=== PATIENT | male | born 1945 | race Caucasian/White ===

== ENCOUNTER → 2016-11-03 | Outpatient (CLI) | payer OTHER, MEDICARE ==
[~2016-11-03] MED LIST: ALPR1TAB3 PO; CLN200 PO; LSN20 PO; LSN40 PO; MULT-506 PO; TRIA75TA53 PO
--- NOTE | 2016-11-03 12:01 | DIAGNOSTIC IMAGING REPORT ---
PET/CT HISTORY: COLORECTAL CANCER TECHNIQUE: PET/CT was performed from the base of the skull through the pelvis following the intravenous administration of 15.4 mCi of F18-FDG. Non-contrast CT imaging was performed over the same range without breath-hold for attenuation correction of PET images and anatomic correlation, but not for primary interpretation as it is not of standard diagnostic quality. CT DOSE: COMPARISON: 05/05/2016 FINDINGS: HEAD AND NECK: There is no FDG-avid disease or significant lymphadenopathy in the imaged portions of the head and the neck. CHEST: There is no FDG-avid disease in the chest. There is no axillary, mediastinal, or hilar lymphadenopathy. There is no pleural or pericardial effusion. There is no air-space disease or suspicious lung nodule. ABDOMEN/PELVIS: Below the diaphragm, tracer is distributed physiologically in the gastrointestinal and genitourinary tracts. There is no significant lymphadenopathy and no FDG-avid disease. MUSCULOSKELETAL: There is no FDG-avid or destructive bone lesion. IMPRESSION: There is no definite evidence of recurrent FDG-avid disease. Stable postoperative changes. Minor chronic changes as noted. No significant pulmonary nodularity Electronically signed by: Tian Becerra M.D. 11/03/2016 12:00 PM Dictated Date/Time: 11/03/2016 11:52 AM
== END | disposition home or self-care (01) ==
LOC: C.PET 08:24
PROVIDERS: ATTEND Internal Medicine Hematology
DX: C20 Malignant neoplasm of rectum (principal); C78.01 Secondary malignant neoplasm of right lung; C78.02 Secondary malignant neoplasm of left lung

== ENCOUNTER → 2016-12-24 | Outpatient (CLI) | payer OTHER, MEDICARE ==
--- NOTE | 2016-12-24 18:58 | DIAGNOSTIC IMAGING REPORT ---
LUMBAR SPINE MRI HISTORY: Pain. Neuropathy. INTERVERTEBRAL DISC DISORDERS W/ RADICULOPATHY TECHNIQUE: Multiplanar multisequence MRI of the lumbar spine was performed without the use of contrast. COMPARISON: None. FINDINGS: For the purpose of the report the L5-S1 disc space will be located on axial image 23 of 25. Considerable degenerative disc change throughout. This is most prominent at L4-L5. Mild heterogeneity of bone marrow signal components of which are age-related and degenerative. L1-L2: Mild broad-based disc bulge. Minimal impact with anterior thecal sac. L2-L3: Broad-based disc herniation with moderate impact upon the anterior thecal sac. Mild narrowing of the neuroforamina bilaterally. L3-L4: Mild broad-based disc herniation. Moderate impact anterior thecal sac. Mild narrowing of the neuroforamina bilaterally. L4-L5: Slight broad-based disc bulge. Minimal impact with anterior thecal sac. Minimal narrowing left neural foramina. L5-S1: Mild right posterior disc bulge. Mild narrowing right neuroforamina. No significant impact with thecal sac. IMPRESSION: 1. Considerable degenerative intervertebral disc changes throughout. 2. Broad-based disc herniations most prominent at L2-L3 and less significant at L3-L4 L4-L5, and L1-L2. 3. Minimal right posterior disc bulge L5-S1. Electronically signed by: Tian Becerra M.D. 12/24/2016 6:56 PM Dictated Date/Time: 12/24/2016 6:52 PM
== END | disposition home or self-care (01) ==
LOC: C.MRI 17:45
PROVIDERS: ATTEND Physician Assistant Medical
DX: M47.896 Other spondylosis, lumbar region (principal); M51.26 Other intervertebral disc displacement, lumbar region

== ENCOUNTER → 2017-07-06 | Outpatient (CLI) | payer OTHER, MEDICARE ==
[~2017-07-06] MED LIST changes: +LISI-726 PO; +LISI40TA3 PO; -LSN20 PO; -LSN40 PO; +OPTIRAY 320 IV PRN; +TAMS0.4C38 PO
--- NOTE | 2017-07-06 10:49 | DIAGNOSTIC IMAGING REPORT ---
ABD/PELVIS IV AND ORAL CONT CT DOSE: HISTORY: Rectal carcinoma RECTAL CANCER TECHNIQUE: Multiaxial CT images of the abdomen and pelvis were performed following the use of intravenous and oral contrast. A dose lowering technique was utilized adhering to the principles of ALARA. COMPARISON STUDY: 02/10/2015 FINDINGS: Unchanged exam compared to the prior study. Micronodular area in the lung bases has remained generally stable. Liver enhances uniformly. Kidneys are negative for hydronephrosis. Spleen pancreas are unremarkable. Gallbladder is negative for distention. No significant retroperitoneal or pericardial adenopathy. Appearance of the bowel pattern of the abdomen and pelvis is stable. Left anterior ostomy site is unchanged in appearance. No significant mesenteric oli change. No evidence for bowel obstructive change. Bladder is midline. Osseous structures appear to be intact. Several small benign-appearing intramuscular lipomas are stable and unchanged. IMPRESSION: Stable exam with no change from the prior study. The above report was generated using voice recognition software. It may contain grammatical, syntax or spelling errors. Electronically signed by: Tian Becerra M.D. 07/06/2017 10:47 AM Dictated Date/Time: 07/06/2017 10:28 AM
--- NOTE | 2017-07-06 10:59 | DIAGNOSTIC IMAGING REPORT ---
CT OF THE CHEST WITH IV CONTRAST CLINICAL HISTORY: RECTAL CANCER COMPARISON STUDY: February 10, 2015 , PET/CT scan dated 11/03/2016 TECHNIQUE: Following the IV administration of 93 mL of Optiray-320, CT of the thorax was performed from the thoracic inlet to the lung bases. Images are reviewed in the axial, sagittal, and coronal planes. IV contrast was administered without complication. A dose lowering technique was utilized adhering to the principles of ALARA. CT DOSE: 1108.92 mGy.cm FINDINGS: Thyroid: Imaged portions of the thyroid gland are normal in appearance. Thoracic aorta: The thoracic aorta is normal in course and caliber, noting standard 3-vessel arch anatomy. No aneurysm or dissection is seen. Pulmonary vasculature: The pulmonary trunk is normal in caliber. There are no central filling defects identified to suggest pulmonary embolus. Note that this examination was not protocoled for the evaluation of pulmonary emboli. HEART: The heart is normal in size and configuration, without pericardial effusion. Lungs and pleural spaces: There is trace pleural fluid. There is mild dependent atelectasis. There is minor lower lobe bronchial wall thickening. There is a 7 mm solid right upper lobe pulmonary nodule as visualized in image #153/321 there is a 3 mm right upper lobe point nodule as visualized in image #115/321 there is a 3 mm left lower lobe pulmonary nodule abutting the fissure as visualized in image #127/321. There is a 1 cm left upper lobe pulmonary nodule as visualized in image #149/321. It is adjacent 3 mm satellite nodule. There is also a 4 mm left upper lobe pulmonary nodule on image #139/321. There is a 6 mm right upper lobe pulmonary nodule as visualized in image #177/321. Mediastinum: There is no mediastinal lymphadenopathy. Brigid: There is no evidence of pathologic hilar adenopathy Axilla: There is no evidence of pathologic axillary lymphadenopathy. Upper abdomen: Partially visualized upper abdominal viscera is within normal limits. Skeletal structures: There are no lytic or blastic osseous lesions. IMPRESSION: 1. Multiple bilateral pulmonary nodules. These appear larger than on the most recent PET/CT scan dated 11/03/2016. Several these nodules have also increased in size when compared the prior chest CT scan dated 02/10/2015. The previously reported dominant 13 mm right upper lobe pulmonary nodule, has decreased in size. The findings are nevertheless concerning for progressive pulmonary metastasis. Electronically signed by: Ruy Britton M.D. 07/06/2017 10:58 AM Dictated Date/Time: 07/06/2017 10:32 AM
== END | disposition home or self-care (01) ==
LOC: C.CTS 09:28
PROVIDERS: ATTEND Internal Medicine Hematology
DX: C20 Malignant neoplasm of rectum (principal)

== ENCOUNTER → 2017-08-12 | Outpatient (CLI) | payer OTHER, MEDICARE ==
[~2017-08-12] MED LIST changes: -LISI-726 PO; -LISI40TA3 PO; +LSN20 PO; +LSN40 PO; -OPTIRAY 320 IV PRN; -TAMS0.4C38 PO
--- NOTE | 2017-08-12 17:22 | DIAGNOSTIC IMAGING REPORT ---
LUMBAR SPINE W/O CONTRAST HISTORY: Pain. Neuropathy. Z48.89,ENCOUNTER FOR SURGICAL AFTERCARE TECHNIQUE: Multiplanar multisequence MRI of the lumbar spine was performed without the use of contrast. COMPARISON: 12/24/2016 FINDINGS: For the purpose of the report the L5-S1 disc space will be located on axial image 27 of 30. Unremarkable appearance to the vertebral bodies. Interval posterior decompression laminectomy from L3 through L5. Considerable degenerative disc change L4-L5 and L5-S1 similar compared to the prior study. L1-L2: Mild broad-based disc bulge. Minimal impact with anterior thecal sac. No change from the prior study. L2-L3: Broad-based disc herniation unchanged from the prior study. Moderate impact upon the anterior thecal sac. Mild narrowing of the neuroforamina bilaterally unchanged. L3-L4: Mild broad-based disc bulge. Interval posterior laminectomy and fusion. Moderate osteophytic narrowing of the neuroforamina bilaterally. L4-L5: Interval history laminectomy and fusion. L5-S1: Right posterior bulging disc creating mild narrowing of the right neuroforamina. No significant impact with thecal sac. Findings of posterior decompression laminectomy and fusion. IMPRESSION: 1. Interval decompression laminectomy and fusion from L3 through L5. 2. Broad-based disc herniation L2-L3 unchanged from the prior exam. Mild narrowing of the neuroforamina bilaterally unchanged. 3. Broad-based bulging disc L3-L4 unchanged. Moderate osteophytic narrowing of the neuroforamina bilaterally unchanged. 4. Right posterior bulging disc L5-S1 with mild narrowing right neuroforamina. No change from the prior exam. The above report was generated using voice recognition software. It may contain grammatical, syntax or spelling errors. Electronically signed by: Tian Becerra M.D. 08/12/2017 5:21 PM Dictated Date/Time: 08/12/2017 5:13 PM
== END | disposition home or self-care (01) ==
LOC: C.MRI 16:13
PROVIDERS: ATTEND Physician Assistant Medical
DX: M51.16 Intervertebral disc disorders with radiculopathy, lumbar region (principal); M51.27 Other intervertebral disc displacement, lumbosacral region; M48.07 Spinal stenosis, lumbosacral region; Z98.1 Arthrodesis status

== ENCOUNTER 2017-09-05 15:24 | Emergency (ER) | payer OTHER, MEDICARE ==
[~2017-09-05] VITALS: Ht 182.9 cm; Wt 97.2 kg
[2017-09-05 15:27] VITALS: TEMP 36.7; Ht 182.9 cm; Wt 97.2 kg
[2017-09-05] MEDS ORDERED: TAMS0.4C38 PO (16:19)
[2017-09-05 18:09] VITALS: BP 167/94; PULSE 54; O2SAT 97
--- NOTE | 2017-09-05 19:12 | DIAGNOSTIC IMAGING REPORT ---
LUMBAR SPINE W/O CONTRAST HISTORY: Pain low back surg 6 days ago. Paresthesia b/l LE. TECHNIQUE: Multiplanar multisequence MRI of the lumbar spine was performed without the use of contrast. COMPARISON: 08/12/2017 FINDINGS: For the purpose of the report the L5-S1 disc space will be located on axial image 27 of 30. Interval posterior laminectomy and fusion L2-L3. Expected postoperative soft tissue change. No evidence for abscess or collection based on sagittal images. L1-L2: Minimal disc bulge unchanged from the prior study. L2-L3: Interval posterior laminectomy and fusion. Unchanging right central bulging disc and a mild disc herniation. Expected postoperative soft tissue change. L3-L4: No significant central canal or neural foraminal narrowing. Mild broad-based disc bulge unchanged from the prior study. L4-L5: No significant central canal or neural foraminal narrowing. Minimal disc bulge unchanged L5-S1: No significant central canal or neural foraminal narrowing. Minimal disc bulge unchanged IMPRESSION: 1. Interval decompression laminectomy and fusion at L2-L3. 2. Expected soft tissue changes posterior to the thecal sac. 3. No significant compromise of the spinal canal or thecal sac. 4. Unchanging findings from L3 through S1 consistent with mild disc bulges and postoperative changes. The above report was generated using voice recognition software. It may contain grammatical, syntax or spelling errors. Electronically signed by: Tian Becerra M.D. 09/05/2017 7:11 PM Dictated Date/Time: 09/05/2017 7:07 PM
--- NOTE | 2017-09-05 19:29 | EMERGENCY ROOM VISIT NOTE ---
History Report prepared by Aniya: Neela Manzanares Under the Supervision of: Jesus PenaO. First contact with patient: 15:41 Chief Complaint: BACK PAIN Stated Complaint: PAIN IN BACK, CROUCH, LEGS History of Present Illness The patient is a 71 year old male who presents to the Emergency Room with complaints of persistent groin pain for two days. He notes the pain has worsened this morning. He currently rates his pain a 7/10 in severity. He reports pain radiating from his groin to both his testicles and to the back of his legs and around his knees. He reports feeling numbness from his groin down to his feet. He recently had open back surgery six days ago in [place]. He states that he was able to walk around his house and was doing so just fine until two days ago, when the pain began. He notified his orthopedic surgeon who recommended he come to the ED for concern of a blood clot s/p surgery. He initially had the back surgery due to sciatica-like symptoms. He notes that he has sensation in his groin area. He denies any urinary symptoms or incontinence. Source of History: patient Onset: two days Position: other (groin) Symptom Intensity: 7/10 Timing: other (persistent) Associated Symptoms: + numbness, No urinary symptoms Note: He notes pain in bilateral testicles, radiating to both legs and feet. He denies any incontinence. Review of Systems See HPI for pertinent positives & negatives. A total of 10 systems reviewed and were otherwise negative. Past Medical & Surgical Medical Problems: (1) Abdominal pain (2) Abdominal pain (3) Abdominal pain (4) Anemia (5) Benign hypertension (6) Carcinoma of colon (7) Clostridium difficile colitis (8) Diarrhea (9) Diarrhea (10) Hypokalemia (11) Hypomagnesemia Surgical Problems: (1) Previous back surgery Family History Cancer Hypertension Social History Smoking Status: Former Smoker Alcohol Use: occasionally Marital Status: Housing Status: lives with significant other Occupation Status: retired Current/Historical Medications Scheduled Lisinopril (Lisinopril), 40 MG PO DIRECTED Multivitamin (Multivitamin), 1 TAB PO DAILY Tamsulosin Hcl (Flomax), 0.8 MG PO DAILY Triamterene/Hctz (Maxzide 75MG/50MG), 1 TAB PO DAILY Scheduled PRN Alprazolam (Xanax), 1 MG PO BID PRN for Anxiety Sulindac (Sulindac), 2 TAB PO DAILY PRN for PRN Allergies Coded Allergies: Antihistamines, Diphenhydramine-typ (Verified Allergy, Mild, RASH ALL ANTIHISTAMINES TYPE UNKNOWN, 09/05/17) Sulfa Drugs (Verified Adverse Reaction, Mild, GI SYMPTOMS, 09/05/17) Aspirin (Unverified Adverse Reaction, Unknown, PT VERY VAGUE WITH SYMPTOMS , 09/05/17) Physical Exam Vital Signs Date Time Temp Pulse Resp B/P (MAP) Pulse Ox O2 Delivery O2 Flow Rate FiO2 09/05/17 18:09 54 18 167/94 97 Room Air 09/05/17 16:14 56 16 152/79 96 Room Air 09/05/17 15:27 36.7 65 16 200/77 97 Room Air Physical Exam CONSTITUTIONAL/VITAL SIGNS: Reviewed / noted above. GENERAL: Non-toxic in appearance. INTEGUMENTARY: Warm, dry, and [place]. HEAD: Normocephalic. EYES: without scleral icterus or trauma. ENT/OROPHARYNX: clear and moist. LYMPHADENOPATHY/NECK: Is supple without lymphadenopathy or meningismus. RESPIRATORY: Lungs clear and equal. CARDIOVASCULAR: Regular rate and rhythm. GI/ABDOMEN: Soft and nontender. No organomegaly or pulsatile mass. No rebound or guarding. Normal bowel sounds. EXTREMITIES: Warm and well perfused. BACK: No CVA tenderness. Surgical wound is well healed, no obvious infection. NEUROLOGICAL: Intact without focal deficits. Normal LE reflexes. Normal gross sensation. Normal motor function. PSYCHIATRIC: normal affect. MUSCULOSKELETAL: Normally developed with good muscle tone. Medical Decision & Procedures ER Provider Diagnostic Interpretation: Radiology results as stated below per my review and radiologist interpretation: LUMBAR SPINE W/O CONTRAST HISTORY: Pain low back surg 6 days ago. Paresthesia b/l LE. TECHNIQUE: Multiplanar multisequence MRI of the lumbar spine was performed without the use of contrast. COMPARISON: 08/12/2017 FINDINGS: For the purpose of the report the L5-S1 disc space will be located on axial image . Interval posterior laminectomy and fusion L2-L3. Expected postoperative soft tissue change. No evidence for abscess or collection based on sagittal images. L1-L2: Minimal disc bulge unchanged from the prior study. L2-L3: Interval posterior laminectomy and fusion. Unchanging right central bulging disc and a mild disc herniation. Expected postoperative soft tissue change. L3-L4: No significant central canal or neural foraminal narrowing. Mild broad-based disc bulge unchanged from the prior study. L4-L5: No significant central canal or neural foraminal narrowing. Minimal disc bulge unchanged L5-S1: No significant central canal or neural foraminal narrowing. Minimal disc bulge unchanged IMPRESSION: 1. Interval decompression laminectomy and fusion at L2-L3. 2. Expected soft tissue changes posterior to the thecal sac. 3. No significant compromise of the spinal canal or thecal sac. 4. Unchanging findings from L3 through S1 consistent with mild disc bulges and postoperative changes. The above report was generated using voice recognition software. It may contain grammatical, syntax or spelling errors. Electronically signed by: Tian Becerar M.D. 09/05/2017 7:11 PM Dictated Date/Time: 09/05/2017 7:07 PM Laboratory Results Test 09/05/17 16:06 Urine Color YELLOW Urine Appearance CLEAR (CLEAR) Urine pH 8.5 (4.5-7.5) Urine Specific [place] 1.008 (1.000-1.030) Urine Protein NEG (NEG) Urine Glucose (UA) NEG (NEG) Urine Ketones NEG (NEG) Urine Occult Blood NEG (NEG) Urine Nitrite NEG (NEG) Urine Bilirubin NEG (NEG) Urine Urobilinogen NEG (NEG) Urine Leukocyte Esterase NEG (NEG) Urine WBC (Auto) 0 /hpf (0-5) Urine RBC (Auto) 0-4 /hpf (0-4) Urine Hyaline Casts (Auto) 0 /lpf (0-5) Urine Epithelial Cells (Auto) 0-5 /lpf (0-5) Urine Bacteria (Auto) NEG (NEG) Laboratory results as stated above per my review. ED Course 1555: Previous medical records were reviewed. The patient was evaluated in room C4. A complete history and physical examination was performed. 1916: I reassessed the patient at this time. He is resting comfortably. I discussed the results and treatment plan with the patient. I answered all pertaining questions that he had. He expressed understanding and verbalized agreement. The patient will be discharged home. Medical Decision Differentials considered include cauda equina syndrome, conus medullaris, spinal cord compression syndrome, peripheral nerve compression, fractures or subluxations, intra-abdominal pathology such as abdominal aortic aneurysm or kidney stones, muscle strain, transverse myelitis, and spinal cord injury. This is a 71-year-old male who presents to the ED with a chief complaint of bilateral lower extremity discomfort. The patient had back surgery 6 days ago in [place]. He states that he noticed some increased pain on Tuesday. He reports some tingling from his hips down. The patient states that he contacted his surgeon and was told to come and get an MRI. The patient's exam was relatively unremarkable. He has no focal neurologic deficits, abnormal reflexes or sensory issues at the lower extremities. An MRI of the spine revealed decompression laminectomy of L2 and L3. Otherwise no significant changes other than postsurgical soft tissue swelling. Urine did not show infection. The patient was told the results. He is felt to be stable for discharge. He did not require pain medication. Medication Reconcilliation Current Medication List: was personally reviewed by me Blood Pressure Screening Patient's blood pressure: Elevated blood pressure Blood pressure disposition: Elevated BP felt to be situational Impression Primary Impression: Sciatica Scribe Attestation The scribe's documentation has been prepared under my direction and personally reviewed by me in its entirety. I confirm that the note above accurately reflects all work, treatment, procedures, and medical decision making performed by me. Departure Information Dispostion Home / Self-Care Referrals Uriel Hewitt M.D. (PCP) Patient Instructions My [facility] Additional Instructions Follow-up with your doctor for further care and evaluation in 3-4 days. Return to the emergency department for worsening or new symptoms or any concerns. You have been examined and treated today on an emergency basis only. This is not a substitute for, or an effort to provide, complete comprehensive medical care. It is impossible to recognize and treat all injuries or illnesses in a single emergency department visit. It is therefore important that you follow up closely with your doctor. Call as soon as possible for an appointment.
== END 2017-09-05 19:37 | disposition home or self-care (01) ==
LOC: C.EDB 15:25 → C.EDC 19:37
DX: M51.16 Intervertebral disc disorders with radiculopathy, lumbar region (principal); Z85.038 Personal history of other malignant neoplasm of large intestine; Z98.890 Other specified postprocedural states; Z87.891 Personal history of nicotine dependence; Z79.899 Other long term (current) drug therapy; Z88.8 Allergy status to other drugs, medicaments and biological substances

== ENCOUNTER 2020-05-05 10:02 | Inpatient (IN) ==
[2020-05-05] MEDS ORDERED: ONDANSETRON INJ 2 MG/ML 2 ML VIAL IV STA (10:10)
[2020-05-05] MEDS ORDERED: SODIUM CHLORIDE 0.9% 1000ML 1,000 ML IV ONE (10:10)
--- NOTE | 2020-05-05 10:18 | Emergency Department Note ---
Impression & Plan Metastasis to brain, High blood pressure, Confusion, Bleeding in brain, Arm weakness ED Provider Note NAME: TADEO SANDOVAL JR AGE: 74 SEX: M : 1945 ARRIVES VIA: Ambulance INFORMANT: Patient ED PROVIDER(S): Todd Mckeon DO CHIEF COMPLAINT: weakness with N/V/D HPI: Patient is a 74-year-old male who presents to the ER for weakness and confusion. Everything has been going on for the past week. Patient deines any nausea, vomiting, and diarrhea but admits to this. notes that the confusion has been getting worse over a week. Patient denies any complaints with the exception of a mild headache. Patient denies any other exacerbating or remitting factors. No change in vision, chest pain, or shortness of breath. 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 He denies any focal weakness or numbness. ROS: See above HPI for pertinent positives & negatives. A total of 10 systems reviewed and were otherwise negative. PAST MEDICAL HISTORY:See Below PAST SURGICAL HISTORY:See Below FAMILY HISTORY:See Below SOCIAL HISTORY:See Below HOME MEDICATIONS:See Below ALLERGIES:See Below VITALS:See Below PHYSICAL EXAMINATION: GENERAL: Sitting up in bed, alert, conically ill-appearing, disheveled EYE EXAM: normal conjunctiva. Disconjugate gaze OROPHARYNX: no exudate, no erythema, lips, buccal mucosa, and tongue normal and mucous membranes are moist NECK: supple, no nuchal rigidity, no adenopathy, non-tender LUNGS: Clear to auscultation. Normal chest wall mechanics HEART: no murmurs, S1 normal and S2 normal ABDOMEN: abdomen soft, non-tender, ostomy in mid abdomen, normo-active bowel sounds, no masses, no rebound or guarding. BACK: Back is symmetrical on inspection and there is no deformity, no midline tenderness, no CVA tenderness. SKIN: no rashes and no bruising UPPER EXTREMITIES: upper extremities are grossly normal. LOWER EXTREMITIES: No pitting edema. NEURO EXAM: Normal sensorium, cranial nerves II-XII intact, normal speech, mild weakness of the left upper and left lower extremity. MEDICAL DECISION MAKING: Patient is a 74-year-old male who presents the ER for confusion associated with nausea vomiting diarrhea x1 week. He also is complaining of some left upper extremity weakness. IV was established blood work was obtained. Labs show no significant leukocytosis or anemia. INR was unremarkable. BMP with normal creatinine. Glucose slightly elevated at 133. LFTs bilirubin and troponin were negative. UA with small amount of ketones. Patient was given IV fluids. CT of his head as well as angios the head and neck shows likely metastatic disease within the brain with small bleeds. His was updated as well as his brother at bedside. Discussed with Dr. Rodriguez from hematology oncology and he was comfortable keeping this gentleman here him believe that he does not need a neurosurgeon and steroids and radiation would be most appropriate. Patient was updated bedside and admitted for further work-up. Triage Nursing notes reviewed. Prior medical records reviewed Vital Signs: reviewed and remarkable for no significant abnormalities Differential diagnosis: Differential diagnoses includes but is not limited to toxic, metabolic, infectious, traumatic, cardiac, neurologic, hematologic, psychiatric and inflammatory etiologies. ER treatment provided: See below Diagnostics interpreted by me: ECG: Sinus rhythm rate of 66 Normal axis No PVCs Normal QTC Cardiac Monitoring: An order was placed for continuous cardiac monitoring. The monitor shows a rate of 74 with sinus rhythm. Laboratory studies: As stated above and show below. Imaging studies: See below Consultation(s): Discussed with Dr. Rodriguez as stated above in MDM Discussed with hospitalist for further evaluation ED COURSE: Procedures: none Critical Care: None Past Med/Surg History Medical History (Updated 05/05/20 @ 16:13 by Todd Mckeon DO) Arthritis Colon cancer [address] Enlarged prostate High blood pressure alcohol related Surgical History History of bowel resection Previous back surgery 08/2017 and 12/2016 Family History Father Cancer Throat Mother Hypertension Social History Smoking Status: Former smoker Tobacco Type: Cigarettes packs per day: 2; Years Smoked: 27; Hx Alcohol Use: Yes Alcohol type: beer Alcohol Intake Frequency Comment: unable to assess freq due to pt not reliable Hx Substance Use: No Preferred Language: Iranian Communication Ability: Impaired Visual Impairment: No Limitations Hearing Ability: Normal Climate Change Risk Assessor Required: No Beliefs That Will Affect Care: None marital status: Current Living Situation: Spouse current occupational status: retired current occupation: [employer] Feels Safe at Home: Yes Safety Concerns: Feels Safe At This Time Assistive Devices: Denture - Upper, Denture - Lower and Glasses Allergies Allergies Allergy/AdvReac Type Severity Reaction Status Date / Time diphenhydramine Allergy Mild RASH ALL Verified 10/17/18 13:24 ANTIHISTAMINES TYPE UNKNOWN Sulfa (Sulfonamide AdvReac Mild GI SYMPTOMS Verified 10/17/18 13:24 Antibiotics) aspirin AdvReac Unknown PT VERY Unverified 10/17/18 13:24 VAGUE WITH SYMPTOMS Home Meds Home Medications Medication Instructions Recorded Confirmed alprazolam 1 mg tablet 1 mg PO BID PRN 08/03/18 05/05/20 lisinopril 40 mg tablet 40 mg PO DAILY 08/03/18 05/05/20 multivitamin 1 cap PO DAILY 08/03/18 05/05/20 sulindac 200 mg tablet 200 mg PO BID 08/03/18 05/05/20 tamsulosin 0.4 mg capsule 0.4 mg PO DAILY 08/03/18 05/05/20 triamterene 75 1 tab PO DAILY 08/03/18 05/05/20 mg-hydrochlorothiazide 50 mg tablet oxycodone 10 mg tablet 10 mg PO TID PRN tab 10/17/18 05/05/20 capecitabine 500 mg PO BID 05/05/20 05/05/20 Results & Data (ED) Vital Signs Vital Signs - 24 hr 05/05/20 10:14 05/05/20 11:45 Temperature 37 C Temperature Source Oral Pulse Rate 63 Pulse Rate [Apical] 68 Respiratory Rate 18 18 Blood Pressure 193/88 H Blood Pressure [Left Arm] 178/86 H Blood Pressure Mean 123 Blood Pressure Mean [Left Arm] 116 Pulse Oximetry 95 96 Oxygen Delivery Method Room Air Room Air Sepsis Recent Fever Within 48 Hours No Sepsis New/Unexplained Change in Mental Status Yes Sepsis Action Taken by Nursing No Action Required Laboratory Data Result diagrams: 05/05/20 10:09 05/05/20 10:09 Lab Results 05/05/20 05/05/20 05/05/20 Range/Units 10:09 10:09 10:09 WBC 5.50 (4.8-10.8) K/uL RBC 3.85 L (4.7-6.1) M/uL Hgb 12.5 L (14.0-18.0) g/dL POC Hgb (14.0-18.0) g/dl Hct 37.7 L (42-52) % POC Hct (42-52) % MCV 97.9 (80-100) fL MCH 32.5 (25-34) pg MCHC 33.2 (32-36) g/dL RDW Std Deviation 51.6 H (36.4-46.3) fL RDW Coeff of Josef 14.7 H (11.5-14.5) % Plt Count 174 (130-400) K/uL MPV 10.2 (7.4-10.4) fL Immature Gran % (Auto) 0.2 % Neut % (Auto) 85.8 % Lymph % (Auto) 6.9 % Blanco % (Auto) 6.9 % Eos % (Auto) 0.2 % Baso % (Auto) 0.0 % Neut # (Auto) 4.72 (1.4-6.5) K/uL Lymph # (Auto) 0.38 L (1.2-3.4) K/uL [place] # (Auto) 0.38 (0.11-0.59) K/uL Eos # (Auto) 0.01 (0-0.5) K/uL Baso # (Auto) 0.00 (0-0.2) K/uL Immature Gran # (Auto) 0.01 (0.00-0.02) K/uL PT 11.3 (9.0-12.0) Seconds INR 1.1 (0.9-1.1) APTT 26.0 (21.0-31.0) Seconds PTT Ratio 0.9 POC Sodium (135-144) mmol/L Sodium 137 (136-145) mmol/L POC Potassium (3.3-5.0) mmol/L Potassium 3.9 (3.5-5.1) mmol/L POC Chloride (101-112) mmol/L Chloride 104 (98-107) mmol/L Carbon Dioxide 28 (21-32) mmol/L POC Total CO2 (24-31) mmol/L Anion Gap 6.0 (3-11) POC Anion Gap (16-25) mmol/L POC BUN (7-18) mg/dl BUN 16 (7-18) mg/dl Creatinine 1.14 (0.6-1.4) mg/dl POC Creatinine (0.6-1.3) mg/dl Est Cr Clr Drug Dosing 59.3 ml/min Est GFR ( Amer) 72.0 Est GFR (Non-Af Amer) 62.1 BUN/Creatinine Ratio 13.8 (10-20) Glucose 131 H (70-99) mg/dl POC Glucose (other) (70-99) mg/dl Calcium 9.3 (8.5-10.1) mg/dl POC Ioniz Calcium Meli (1.12-1.32) mmol/l Magnesium 1.8 (1.8-2.4) mg/dl Total Bilirubin 1.4 H (0.2-1) mg/dl AST 22 (15-37) U/L ALT 21 (12-78) U/L Alkaline Phosphatase 84 (45-117) U/L Troponin I < 0.015 (0-0.045) ng/ml Total Protein 6.6 (6.4-8.2) gm/dl Albumin 3.7 (3.4-5.0) gm/dl Globulin 2.9 (2.5-4.0) gm/dl Albumin/Globulin Ratio 1.3 (0.9-2) Specimen Hemolysis 05/05/20 Range/Units 10:15 WBC (4.8-10.8) K/uL RBC (4.7-6.1) M/uL Hgb (14.0-18.0) g/dL POC Hgb 12.6 L (14.0-18.0) g/dl Hct (42-52) % POC Hct 37 L (42-52) % MCV (80-100) fL MCH (25-34) pg MCHC (32-36) g/dL RDW Std Deviation (36.4-46.3) fL RDW Coeff of Josef (11.5-14.5) % Plt Count (130-400) K/uL MPV (7.4-10.4) fL Immature Gran % (Auto) % Neut % (Auto) % Lymph % (Auto) % [place]anco % (Auto) % Eos % (Auto) % Baso % (Auto) % Neut # (Auto) (1.4-6.5) K/uL Lymph # (Auto) (1.2-3.4) K/uL [place] # (Auto) (0.11-0.59) K/uL Eos # (Auto) (0-0.5) K/uL Baso # (Auto) (0-0.2) K/uL Immature Gran # (Auto) (0.00-0.02) K/uL PT (9.0-12.0) Seconds INR (0.9-1.1) APTT (21.0-31.0) Seconds PTT Ratio POC Sodium 137 (135-144) mmol/L Sodium (136-145) mmol/L POC Potassium 3.9 (3.3-5.0) mmol/L Potassium (3.5-5.1) mmol/L POC Chloride 100 L (101-112) mmol/L Chloride (98-107) mmol/L Carbon Dioxide (21-32) mmol/L POC Total CO2 28 (24-31) mmol/L Anion Gap (3-11) POC Anion Gap 14.0 L (16-25) mmol/L POC BUN 18 (7-18) mg/dl BUN (7-18) mg/dl Creatinine (0.6-1.4) mg/dl POC Creatinine 1.0 (0.6-1.3) mg/dl Est Cr Clr Drug Dosing ml/min Est GFR ( Amer) Est GFR (Non-Af Amer) BUN/Creatinine Ratio (10-20) Glucose (70-99) mg/dl POC Glucose (other) 133 H (70-99) mg/dl Calcium (8.5-10.1) mg/dl POC Ioniz Calcium Meli 1.21 (1.12-1.32) mmol/l Magnesium (1.8-2.4) mg/dl Total Bilirubin (0.2-1) mg/dl AST (15-37) U/L ALT (12-78) U/L Alkaline Phosphatase (45-117) U/L Troponin I (0-0.045) ng/ml Total Protein (6.4-8.2) gm/dl Albumin (3.4-5.0) gm/dl Globulin (2.5-4.0) gm/dl Albumin/Globulin Ratio (0.9-2) Specimen Hemolysis Administered Medications Discontinued Medications Haloperidol Lactate (Haloperidol Lactate 5 Mg/Ml 1 Ml Vial) 5 mg IM NOW STA Stop: 05/05/20 13:39 Last Admin: 05/05/20 13:49 Dose: 5 mg Documented by: [id number] Haloperidol Lactate (Haloperidol Lactate 5 Mg/Ml 1 Ml Vial) Confirm Administered Dose 5 mg .ROUTE .STK-MED ONE Stop: 05/05/20 13:44 Last Admin: 05/05/20 13:49 Dose: Not Given Documented by: [id number] Sodium Chloride (Nss 1000ml) 1,000 mls @ 999 mls/hr IV .Q1H1M ONE Stop: 05/05/20 11:10 Last Infusion: 05/05/20 11:58 Dose: 0 mls/hr Documented by: [id number] Admin: 05/05/20 10:55 Dose: 999 mls/hr Documented by: [id number] Ioversol (Optiray 320 125ml) 120 ml IV ONCE ONE Stop: 05/05/20 10:31 Last Admin: 05/05/20 10:31 Dose: 120 ml Documented by: [id number] Ondansetron HCl (Ondansetron Inj 2 Mg/Ml 2 Ml Vial) 4 mg IV NOW STA Stop: 05/05/20 10:11 Last Admin: 05/05/20 10:56 Dose: 4 mg Documented by: [id number] Discharge Plan Visit Data Chief Complaint: Confusion ED Provider: Todd Mckeon Discharge Problem: Metastasis to brain, High blood pressure, Confusion, Bleeding in brain, Arm weakness Patient Disposition: Admitted As Inpatient Discharge Instructions Interventions: ED Discharge Assessment Last Done: 05/05/20 13:48 Discharge Problem: High blood pressure Qualifiers: Hypertension type: unspecified Qualified Code(s): I10 - Essential (primary) hypertension Bleeding in brain Qualifiers: Intracerebral hemorrhage etiology: nontraumatic Cerebral hemorrhage location: unspecified cerebral location Laterality: unspecified laterality Qualified Code(s): I61.9 - Nontraumatic intracerebral hemorrhage, unspecified
[2020-05-05 10:19] LABS: Eosinophils # (auto) 0.01 K/uL (0-0.5); Eosinophils % (auto) 0.2 %; Hematocrit (blood only) 37.7 % (42-52); Hemoglobin 12.5 g/dL (14.0-18.0); Immature Granulocytes # (auto) 0.01 K/uL (0.00-0.02); Immature Granulocytes % (auto) 0.2 %; Lymphocytes # (auto) 0.38 K/uL (1.2-3.4); Lymphocytes % (auto) 6.9 %; Mean Corpuscular Hemoglobin 32.5 pg (25-34); Mean Corpuscular Hgb Conc 33.2 g/dL (32-36); Mean Corpuscular Volume 97.9 fL (80-100); Mean Platelet Volume 10.2 fL (7.4-10.4); Monocytes # (auto) 0.38 K/uL (0.11-0.59); Monocytes % (auto) 6.9 %; Neutrophils # (auto) 4.72 K/uL (1.4-6.5); Neutrophils % (auto) 85.8 %; Platelet Count 174 K/uL (130-400); RDW Coefficient of Variation 14.7 % (11.5-14.5); RDW Standard Deviation 51.6 fL (36.4-46.3); Red Blood Count 3.85 M/uL (4.7-6.1)
[2020-05-05] MEDS ORDERED: OPTIRAY 320 125ml IV ONE (10:30)
[2020-05-05 10:31] LABS: INR 1.1 (0.9-1.1); Partial Thromboplastin Ratio 0.9; Prothrombin Time 11.3 Seconds (9.0-12.0)
[2020-05-05 10:34] LABS: iSTAT Hemoglobin 12.6 g/dl (14.0-18.0); iSTAT Ionized Calcium 1.21 mmol/l (1.12-1.32); iSTAT Potassium 3.9 mmol/L (3.3-5.0)
--- NOTE | 2020-05-05 10:37 | XRay Report ---
XR chest 1V portable HISTORY: 74 years-old Male weak acute weakness COMPARISON: PET CT 11/14/2019 TECHNIQUE: Portable AP view of the chest FINDINGS: Cardiomediastinal and hilar silhouettes are within normal limits. Bilateral pulmonary metastasis are redemonstrated. No pneumothorax, pleural effusion or overt pulmonary edema. No airspace consolidation typical for pneumonia. Bones appear grossly intact without acute fracture. IMPRESSION: 1. No acute process. 2. Pulmonary metastasis redemonstrated. ACT 112: Negative or not required by law. The above report was generated using voice recognition software. It may contain grammatical, syntax o r spelling errors. Electronically signed by: Zhang Valdez M.D. 05/05/2020 10:36 AM
[2020-05-05 10:43] LABS: Alanine Aminotransferase 21 U/L (12-78); Albumin Globulin Ratio 1.3 (0.9-2); Albumin Level 3.7 gm/dl (3.4-5.0); Alkaline Phosphatase 84 U/L (45-117); Aspartate Aminotransferase 22 U/L (15-37); BUN Creatinine Ratio 13.8 (10-20); Bilirubin,Total 1.4 mg/dl (0.2-1); Blood Urea Nitrogen 16 mg/dl (7-18); Calcium 9.3 mg/dl (8.5-10.1); Carbon Dioxide 28 mmol/L (21-32); Chloride 104 mmol/L (98-107); Creatinine Clr Calc Pharmacy 59.3 ml/min; Est GFR (Non-African American) 62.1; Globulin 2.9 gm/dl (2.5-4.0); Glucose 131 mg/dl (70-99); Magnesium 1.8 mg/dl (1.8-2.4); Potassium 3.9 mmol/L (3.5-5.1); Sodium 137 mmol/L (136-145); Total Protein 6.6 gm/dl (6.4-8.2); Troponin I < 0.015 ng/ml (0-0.045)
--- NOTE | 2020-05-05 11:04 | CT Scan Report ---
CT SCAN OF THE ABDOMEN AND PELVIS WITH IV CONTRAST CLINICAL HISTORY: Generalized abdominal pain. Change in mental status. COMPARISON STUDY: Abdominal CT dated 07/06/2017. PET/CT dated 11/14/2019. TECHNIQUE: Following the IV administration of 120 cc of Optiray 320, CT scan of the abdomen and pelv is is performed from the lung bases to the proximal femora. Images are reviewed in the axial, sagitta l, and coronal planes. IV contrast was administered without complication. A dose lowering technique w as utilized adhering to the principles of ALARA. FINDINGS: Lung bases: The heart is enlarged noting a moderate pericardial effusion. The coronary arteries are d ensely calcified. There is trace right pleural effusion. No airspace consolidation is seen typical fo r pneumonia. Scattered calcified granulomas are observed. Pulmonary metastatic disease at both lung b ases appears modestly increased from the 11/14/2019 examination. A 3.9 cm left lower lobe mass is seen on image #13. A 1.4 cm right lower lobe nodule is seen on image #45. There is a small hiatal hernia. Liver: The contrast-enhanced liver is normal in size, contour, and attenuation. There is mild intrahe patic biliary ductal dilatation. The hepatic veins and portal veins are patent. Gallbladder: Surgically absent noting clips in the gallbladder fossa. Dilatation of the common bile d uct is similar to previous and likely related to previous cholecystectomy. Spleen: Normal in size and attenuation. Pancreas: Moderately atrophic and grossly unremarkable. Adrenal glands: Unremarkable. Kidneys: The contrast enhanced kidneys demonstrate cortical atrophy and are without hydronephrosis. T he kidneys enhance symmetrically. Abdominal vasculature: The abdominal aorta is normal in course and caliber noting moderate atheroscle rotic calcification. Bowel: There is postoperative change from a proctocolectomy with left lower quadrant colostomy. No hung wel obstruction is identified. There is mild to moderate diverticulosis of the remaining colon withou t CT evidence of acute diverticulitis. There are also scattered diverticula of the small bowel. There is interloop edema and minimal wall thickening involving loops of small bowel in the left mid abdome n (image #191). Moderate constipation is observed. The appendix is surgically absent. Peritoneum: There is no intraperitoneal free air or abdominal ascites. Lymphadenopathy: None. Pelvic viscera: The prostate gland is enlarged and heterogeneous. The bladder wall is thickened and t rabeculated indicating chronic outlet obstruction. Skeletal structures: The skeletal structures are osteopenic. There is moderate lumbosacral spondylosi s. Postlaminectomy changes noted in the lower lumbar spine. No lytic or blastic lesions are seen. IMPRESSION: 1. There is interloop edema involving loops of small bowel in the left midabdomen with minimal small bowel wall thickening. Correlate clinically for evidence of a nonspecific enteritis. 2. Cardiomegaly and moderate pericardial effusion. This has increased in size from 11/14/2019. 3. Pulmonary metastatic disease appears modestly progressive as compared to 11/14/2019. 4. Trace right pleural effusion. 5. Moderate constipation. 6. Postoperative change from proctocolectomy with left lower quadrant colostomy. No bowel obstruction is seen. 7. Additional findings as above. ACT 112: Negative or not required by law. Electronically signed by: Lino Ricci M.D. 05/05/2020 11:03 AM
--- NOTE | 2020-05-05 11:08 | CT Scan Report ---
NONCONTRAST HEAD CT, HEAD CTA, & NECK CTA HISTORY: Confusion. Stroke evaluation TECHNIQUE: Multiaxial CT images of the head were performed both before and after the the intravenous administration of contrast to evaluate the major cerebral vessels. Multiaxial CT images of the neck w ere also performed following the intravenous administration of contrast to evaluate the major cervica l vessels. Maximum intensity projection images were also obtained. A dose lowering technique was util ized adhering to the principles of ALARA. COMPARISON: None. FINDINGS: The paranasal sinuses and mastoid air cells are clear. The calvarium and skull base are intact. There are multiple slightly hyperdense lesions seen scattered throughout the supratentorial and infratento rial brain with surrounding vasogenic edema. Dominant lesion within the left cerebellar hemisphere me asures 11 mm. Dominant lesion within the left frontal lobe on image 17 measures 2.4 cm. There is mild mass effect along the left lateral ventricle due to the vasogenic edema. The basilar cisterns appear intact. No significant midline shift at this time. These findings are consistent with hemorrhagic me tastatic foci. No acute infarct identified. Visualized intracranial internal carotid arteries, distal vertebral arteries, and basilar artery are widely patent. There is no significant stenosis, occlusio n, or aneurysm seen within the bilateral ACAs, MCAs, or industrial illuminating engineer. There is a persistent right posterior f etal circulation. This is considered to be a normal variant. The aortic arch and proximal great vessels are widely patent. There is no significant stenosis, occ lusion, or dissection identified within the bilateral common carotid, internal carotid, or vertebral arteries. The patient's known pulmonary metastatic nodules are better appreciated on the prior studie s. IMPRESSION: 1. No significant stenosis, occlusion, or aneurysm within the [place]. 2. No significant stenosis, occlusion, or dissection identified within the carotid or vertebral arter ies. 3. Multiple intracranial lesions consistent with metastatic disease. These are hyperdense favoring he morrhagic metastatic foci. 4. The patient's known pulmonary metastatic disease is better appreciated on the prior studies. ACT 112: Negative or not required by law. Electronically signed by: Alexander Martinez M.D. 05/05/2020 11:06 AM
--- NOTE | 2020-05-05 11:08 | CT Scan Report ---
NONCONTRAST HEAD CT, HEAD CTA, & NECK CTA HISTORY: Confusion. Stroke evaluation TECHNIQUE: Multiaxial CT images of the head were performed both before and after the the intravenous administration of contrast to evaluate the major cerebral vessels. Multiaxial CT images of the neck w ere also performed following the intravenous administration of contrast to evaluate the major cervica l vessels. Maximum intensity projection images were also obtained. A dose lowering technique was util ized adhering to the principles of ALARA. COMPARISON: None. FINDINGS: The paranasal sinuses and mastoid air cells are clear. The calvarium and skull base are intact. There are multiple slightly hyperdense lesions seen scattered throughout the supratentorial and infratento rial brain with surrounding vasogenic edema. Dominant lesion within the left cerebellar hemisphere me asures 11 mm. Dominant lesion within the left frontal lobe on image 17 measures 2.4 cm. There is mild mass effect along the left lateral ventricle due to the vasogenic edema. The basilar cisterns appear intact. No significant midline shift at this time. These findings are consistent with hemorrhagic me tastatic foci. No acute infarct identified. Visualized intracranial internal carotid arteries, distal vertebral arteries, and basilar artery are widely patent. There is no significant stenosis, occlusio n, or aneurysm seen within the bilateral ACAs, MCAs, or smoke and flame specialist. There is a persistent right posterior f etal circulation. This is considered to be a normal variant. The aortic arch and proximal great vessels are widely patent. There is no significant stenosis, occ lusion, or dissection identified within the bilateral common carotid, internal carotid, or vertebral arteries. The patient's known pulmonary metastatic nodules are better appreciated on the prior studie s. IMPRESSION: 1. No significant stenosis, occlusion, or aneurysm within the [place]. 2. No significant stenosis, occlusion, or dissection identified within the carotid or vertebral arter ies. 3. Multiple intracranial lesions consistent with metastatic disease. These are hyperdense favoring he morrhagic metastatic foci. 4. The patient's known pulmonary metastatic disease is better appreciated on the prior studies. ACT 112: Negative or not required by law. Electronically signed by: Alexander Martinez M.D. 05/05/2020 11:06 AM
--- NOTE | 2020-05-05 11:19 | Electrocardiogram Report ---
Test Reason : Blood Pressure : / mmHG Vent. Rate : 061 BPM Atrial Rate : 061 BPM P-R Int : 196 ms QRS Dur : 108 ms QT Int : 440 ms P-R-T Axes : 092 000 049 degrees QTc Int : 442 ms Normal sinus rhythm Normal ECG When compared with ECG of 12-MAR-2013 18:31, Nonspecific T wave abnormality now evident in Anterior leads T wave amplitude has increased in Lateral leads Confirmed by Nakul Correa ([id number]) on 05/05/2020 11:19:43 AM Referred By: REFERRED SELF Confirmed By:Dayo Correa
--- NOTE | 2020-05-05 13:16 | History & Physical Report ---
Date of Service May 05, 2020 Assessment & Plan (1) Rectal cancer metastasized to lung: (2) Metastasis to brain: (3) Confusion: This is a 74-year-old male who has significant past medical history of rectal cancer with known mets to both lungs, HTN, BPH, osteoarthritis who presents to E [facility] secondary to confusion and weakness x1 week. Head CT reveals multiple lesions concerning for hemorrhagic metastatic disease. I had a long discussion with patient and brother at bedside. I also spoke with on the phone who is currently undergoing a cholecystectomy. Patient initially diagnosed with rectal CA in 2012 with mets to the lung. Now with increased confusion x2 weeks and newly discovered metastatic disease to the brain. Patient and family wish to not pursue any further systemic chemotherapy or radiation therapy. I discussed case with Dr. Rodriguez who agrees palliative care consult as well as initiating oral Decadron 4 mg every 4 hours. Admit to medical Consult palliative care with hopeful transition to hospice care, goal is to return patient to home One-to-one as needed as patient very restless and impulsive Decadron 4 mg every 4 hours IVF 100 cc/h x 2 L Consult case management Haldol 5mg x 1 given in ER due to restlessness Pt was on xeloda a home -unsure if currently taking but will hold for now given family wish to no longer pursue chemo he does follow with [facility] in [place] as well (4) Pericardial effusion: discovered on CT, no s/sx of tamponade obtain echocardiogram (5) Abnormal CT of the abdomen: CT abd/pelvis: interloop edema involving loops of small bowel in the left midabdomen with minimal small bowel wall thickening. Correlate clinically for evidence of a nonspecific enteritis. reports 1 week ago of n/v/d. This has since resolved. Afebrile, no wbc and abd exam benign. Order stool studies and observe. No indication for antibiotics at this this. (6) HTN (hypertension): continue lisinopril, triamterene/hctz, parameters in place monitor bp (7) DVT prophylaxis: SCD/TEDS Disposition: admit to med/surg, plan to consult palliative with possibility of hospice involvement Follow up: PCP Dr. Hewitt upon discharge Pt was seen and examined in collaboration with Dr. Palomino, please see addendum History of Present Illness Chief Complaint: Confusion and weakness x1 week. Primary Care Provider: Uriel Hewitt MD This is a 74-year-old male who has significant past medical history of rectal cancer with known mets to both lungs, HTN, BPH, osteoarthritis who presents to ED secondary to confusion and weakness x1 week. Patient's brother is at bedside. Unfortunately could not be here as she is currently in [facility] undergoing cholecystectomy. According to who I did speak with on the phone she called EMS this morning secondary to worsening confusion and weakness for 1 week. She stated approximately 2 weeks ago patient did have GI bug with nausea and diarrhea. This has since resolved. For the past 1 week she has noticed progressive confusion. She noted for the past couple months he had been getting more confused, but over the past week has gotten worse. He has had 2 falls and she feels his gait is unsteady. ROS is unobtainable from pt and brother and bedside states, " I only knew this started 3 hours ago." noted over the past week pt would forget things he would know. 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 Pt denies f/c/s, dizzy, lightheaded, chest pain, sob, n/v/d, abdominal pain, RODRIGUEZ, change it vision but again ROS unreliable. In ED remained hemodynamically stable although was mildly hypertensive. He would answer questions, but not accurate. He was also very restless. CBC revealed mild anemia with H&H 12.5 and 37.7, CMP generally unremarkable except mild hyperglycemia at 131, total bilirubin 1.4. Head and Neck CT revealed multiple intracranial lesions consistent with metastatic disease. These are hyperdense favoring hemorrhagic metastatic foci. No significant stenosis, occlusion or aneurysm within the [place] or carotid or vertebral arteries. CT abd/pelvis: 1. There is interloop edema involving loops of small bowel in the left midabdomen with minimal small bowel wall thickening. Correlate clinically for evidence of a nonspecific enteritis. 2. Cardiomegaly and moderate pericardial effusion. In ED pt received IVF and zofran. Allergies Allergy/AdvReac Type Severity Reaction Status Date / Time diphenhydramine Allergy Mild RASH ALL Verified 10/17/18 13:24 ANTIHISTAMINES TYPE UNKNOWN Sulfa (Sulfonamide AdvReac Mild GI SYMPTOMS Verified 10/17/18 13:24 Antibiotics) aspirin AdvReac Unknown PT VERY Unverified 10/17/18 13:24 VAGUE WITH SYMPTOMS Home Medications Home Medications Medication Instructions Recorded Confirmed Type alprazolam 1 mg tablet 1 mg PO BID PRN 08/03/18 05/05/20 History lisinopril 40 mg tablet 40 mg PO DAILY 08/03/18 05/05/20 History multivitamin 1 cap PO DAILY 08/03/18 05/05/20 History sulindac 200 mg tablet 200 mg PO BID 08/03/18 05/05/20 History tamsulosin 0.4 mg capsule 0.4 mg PO DAILY 08/03/18 05/05/20 History triamterene 75 1 tab PO DAILY 08/03/18 05/05/20 History mg-hydrochlorothiazide 50 mg tablet oxycodone 10 mg tablet 10 mg PO TID PRN tab 10/17/18 05/05/20 History capecitabine 500 mg PO BID 05/05/20 05/05/20 History Past Med/Surg History Medical History (Updated 05/05/20 @ 16:13 by Todd Mckeon DO) Arthritis Colon cancer [address] Enlarged prostate High blood pressure alcohol related Surgical History History of bowel resection Previous back surgery 08/2017 and 12/2016 Family History Father Cancer Throat Mother Hypertension Social History Smoking Status: Former smoker Tobacco Type: Cigarettes packs per day: 2; Years Smoked: 27; Hx Alcohol Use: Yes Alcohol type: beer Alcohol Intake Frequency Comment: unable to assess freq due to pt not reliable Hx Substance Use: No Preferred Language: Indonesian Communication Ability: Impaired Visual Impairment: No Limitations Hearing Ability: Normal 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 Beliefs That Will Affect Care: None marital status: Current Living Situation: Spouse current occupational status: retired current occupation: [employer] Feels Safe at Home: Yes Safety Concerns: Feels Safe At This Time Assistive Devices: Denture - Upper, Denture - Lower and Glasses Review of Systems Review of Systems: All systems reviewed & are unremarkable except as noted in HPI & below Physical Exam Physical Exam: Constitutional: WD/WN, Male, restless, tangential, vitals as above, sitting up in bed, pleasant, answers questions but not always accurate or appopriate Head: Normocephalic, Atraumatic Eyes: PERRL,L conjugate gaze, conjunctivae normal, anicteric sclerae ENMT: external ear and nose normal, oropharynx normal Neck: trachea midline, no thyromegaly normal visual inspection Respiratory: normal respiratory effort, lungs clear to auscultation, no wheeze, rales, rhonchi. Normal insp/exp effort, no accessory muscle use Cardiovascular: RRR, no murmur, no edema, b/l lower ext varicosities noted. Vessels: no JVD or carotid bruit Chest: normal inspection of chest Abdomen: +LLQ colostomy, normal bowel sounds, soft, nontender, no hepatosplenomegaly Musculoskeletal: no cyanosis or clubbing, extremities motor strength 5/5 Skin: no rashes, warm and dry moderate turgor Neurologic: PERRL, EOMI, accommodation nl, no face palsy, no dysarthria CN's II-XI intact bilaterally and moves all extremities Psychiatric: Alert to self only, euthymic affect Lymphatic: no cervical or axillary lymphadenopathy : deferred Results & Data Results & Data ([facility]) Vital Signs (Past 12 Hours) Vital Signs Temp Pulse Pulse Resp BP BP Pulse Ox 05/05/20 11:45 68 18 178/86 H 96 05/05/20 10:14 37 C 63 18 193/88 H 95 Laboratory Results 05/05/20 05/05/20 05/05/20 Range/Units 10:15 10:09 10:09 WBC (4.8-10.8) K/uL RBC (4.7-6.1) M/uL Hgb (14.0-18.0) g/dL POC Hgb 12.6 L (14.0-18.0) g/dl Hct (42-52) % POC Hct 37 L (42-52) % MCV (80-100) fL MCH (25-34) pg MCHC (32-36) g/dL RDW Std Deviation (36.4-46.3) fL RDW Coeff of Josef (11.5-14.5) % Plt Count (130-400) K/uL MPV (7.4-10.4) fL Immature Gran % (Auto) % Neut % (Auto) % Lymph % (Auto) % Caroline % (Auto) % Eos % (Auto) % Baso % (Auto) % Neut # (Auto) (1.4-6.5) K/uL Lymph # (Auto) (1.2-3.4) K/uL Caroline # (Auto) (0.11-0.59) K/uL Eos # (Auto) (0-0.5) K/uL Baso # (Auto) (0-0.2) K/uL Immature Gran # (Auto) (0.00-0.02) K/uL PT 11.3 (9.0-12.0) Seconds INR 1.1 (0.9-1.1) APTT 26.0 (21.0-31.0) Seconds PTT Ratio 0.9 POC Sodium 137 (135-144) mmol/L Sodium 137 (136-145) mmol/L POC Potassium 3.9 (3.3-5.0) mmol/L Potassium 3.9 (3.5-5.1) mmol/L POC Chloride 100 L (101-112) mmol/L Chloride 104 (98-107) mmol/L Carbon Dioxide 28 (21-32) mmol/L POC Total CO2 28 (24-31) mmol/L Anion Gap 6.0 (3-11) POC Anion Gap 14.0 L (16-25) mmol/L POC BUN 18 (7-18) mg/dl BUN 16 (7-18) mg/dl Creatinine 1.14 (0.6-1.4) mg/dl POC Creatinine 1.0 (0.6-1.3) mg/dl Est Cr Clr Drug Dosing 59.3 ml/min Est GFR ( Amer) 72.0 Est GFR (Non-Af Amer) 62.1 BUN/Creatinine Ratio 13.8 (10-20) Glucose 131 H (70-99) mg/dl POC Glucose (other) 133 H (70-99) mg/dl Calcium 9.3 (8.5-10.1) mg/dl POC Ioniz Calcium Meli 1.21 (1.12-1.32) mmol/l Magnesium 1.8 (1.8-2.4) mg/dl Total Bilirubin 1.4 H (0.2-1) mg/dl AST 22 (15-37) U/L ALT 21 (12-78) U/L Alkaline Phosphatase 84 (45-117) U/L Troponin I < 0.015 (0-0.045) ng/ml Total Protein 6.6 (6.4-8.2) gm/dl Albumin 3.7 (3.4-5.0) gm/dl Globulin 2.9 (2.5-4.0) gm/dl Albumin/Globulin Ratio 1.3 (0.9-2) Specimen Hemolysis 05/05/20 Range/Units 10:09 WBC 5.50 (4.8-10.8) K/uL RBC 3.85 L (4.7-6.1) M/uL Hgb 12.5 L (14.0-18.0) g/dL POC Hgb (14.0-18.0) g/dl Hct 37.7 L (42-52) % POC Hct (42-52) % MCV 97.9 (80-100) fL MCH 32.5 (25-34) pg MCHC 33.2 (32-36) g/dL RDW Std Deviation 51.6 H (36.4-46.3) fL RDW Coeff of Josef 14.7 H (11.5-14.5) % Plt Count 174 (130-400) K/uL MPV 10.2 (7.4-10.4) fL Immature Gran % (Auto) 0.2 % Neut % (Auto) 85.8 % Lymph % (Auto) 6.9 % Caroline % (Auto) 6.9 % Eos % (Auto) 0.2 % Baso % (Auto) 0.0 % Neut # (Auto) 4.72 (1.4-6.5) K/uL Lymph # (Auto) 0.38 L (1.2-3.4) K/uL Caroline # (Auto) 0.38 (0.11-0.59) K/uL Eos # (Auto) 0.01 (0-0.5) K/uL Baso # (Auto) 0.00 (0-0.2) K/uL Immature Gran # (Auto) 0.01 (0.00-0.02) K/uL PT (9.0-12.0) Seconds INR (0.9-1.1) APTT (21.0-31.0) Seconds PTT Ratio POC Sodium (135-144) mmol/L Sodium (136-145) mmol/L POC Potassium (3.3-5.0) mmol/L Potassium (3.5-5.1) mmol/L POC Chloride (101-112) mmol/L Chloride (98-107) mmol/L Carbon Dioxide (21-32) mmol/L POC Total CO2 (24-31) mmol/L Anion Gap (3-11) POC Anion Gap (16-25) mmol/L POC BUN (7-18) mg/dl BUN (7-18) mg/dl Creatinine (0.6-1.4) mg/dl POC Creatinine (0.6-1.3) mg/dl Est Cr Clr Drug Dosing ml/min Est GFR ( Amer) Est GFR (Non-Af Amer) BUN/Creatinine Ratio (10-20) Glucose (70-99) mg/dl POC Glucose (other) (70-99) mg/dl Calcium (8.5-10.1) mg/dl POC Ioniz Calcium Meli (1.12-1.32) mmol/l Magnesium (1.8-2.4) mg/dl Total Bilirubin (0.2-1) mg/dl AST (15-37) U/L ALT (12-78) U/L Alkaline Phosphatase (45-117) U/L Troponin I (0-0.045) ng/ml Total Protein (6.4-8.2) gm/dl Albumin (3.4-5.0) gm/dl Globulin (2.5-4.0) gm/dl Albumin/Globulin Ratio (0.9-2) Specimen Hemolysis Diagnostic Findings Head/Neck CTA/Head CT: IMPRESSION: 1. No significant stenosis, occlusion, or aneurysm within the [place]. 2. No significant stenosis, occlusion, or dissection identified within the carot id or vertebral arteries. 3. Multiple intracranial lesions consistent with metastatic disease. These are hyperdense favoring hemorrhagic metastatic foci. 4. The patient's known pulmonary metastatic disease is better appreciated on the prior studies. CXR: IMPRESSION: 1. No acute process. 2. Pulmonary metastasis redemonstrated. Abd/pelvis CT: IMPRESSION: 1. There is interloop edema involving loops of small bowel in the left midabdomen with minimal small bowel wall thickening. Correlate clinically for evidence of a nonspecific enteritis. 2. Cardiomegaly and moderate pericardial effusion. This has increased in size from 11/14/2019. 3. Pulmonary metastatic disease appears modestly progressive as compared to 11/14/2019. 4. Trace right pleural effusion. 5. Moderate constipation. 6. Postoperative change from proctocolectomy with left lower quadrant colostomy. No bowel obstruction is seen. 7. Additional findings as above. Medications Administered Discontinued Medications Sodium Chloride (Nss 1000ml) 1,000 mls @ 999 mls/hr IV .Q1H1M ONE Stop: 05/05/20 11:10 Last Infusion: 05/05/20 11:58 Dose: 0 mls/hr Documented by: [id number] Admin: 05/05/20 10:55 Dose: 999 mls/hr Documented by: [id number] Ioversol (Optiray 320 125ml) 120 ml IV ONCE ONE Stop: 05/05/20 10:31 Last Admin: 05/05/20 10:31 Dose: 120 ml Documented by: [id number] Ondansetron HCl (Ondansetron Inj 2 Mg/Ml 2 Ml Vial) 4 mg IV NOW STA Stop: 05/05/20 10:11 Last Admin: 05/05/20 10:56 Dose: 4 mg Documented by: [id number] ECG Rate (beats per minute): 61 Rhythm: normal sinus Code Status & VTE Plan Code Status DNR/DNI VTE Prophylaxis Plan VTE Prophylaxis will be ordered: Yes Reason for no VTE drug order: Contraindicated Supervising Physician Co-Signing Physician Notes Attending addendum: The patient was seen and examined in ER in presence of the brother He was brought in with increasing confusion and unsteadiness with history of colon cancer with metastasis He remains pleasantly confused during examination He was also noted to be restless denied any acute pain and/or shortness of breath On examination Restless in bed Hemodynamically stable Chest-react to auscultate bilaterally Heart-S1-S2, regular Abdomen-benign, colostomy bag in situ Extremities-1+ edema bilaterally with chronic bilateral skin changes INTERNATIONAL LOGISTICS MANAGER-alert and awake. Pleasantly confused. Restless Admission labs, EKG and imaging studies reviewed CT did show increasing mets with possible bleeding Discussed with the oncologist and has been put on Decadron with a palliative consult on board Except 1 dose of Haldol in the emergency room Agree with assessment and plan as outlined above by MATT Aguila Dr
[2020-05-05] MEDS ORDERED: HALOPERIDOL LACTATE 5 MG/ML 1 ML VIAL IM STA (13:38)
[2020-05-05] MEDS ORDERED: PROMETHAZINE HCL 25 MG in SODIUM CHLORIDE 0.9% 50 ML IV PRN (13:39)
[2020-05-05] MEDS ORDERED: HALOPERIDOL LACTATE 5 MG/ML 1 ML VIAL ONE (13:43)
[2020-05-05] MEDS ORDERED: INFLUENZA Vaccine HIGH DOSE 65+yrs 0.5 mL Syr IM ONE (14:00)
[2020-05-05] MEDS ORDERED: ACETAMINOPHEN 325 MG TAB PO PRN (14:04)
[2020-05-05] MEDS ORDERED: POLYETHYLENE (MIRALAX) 17 GM PACK PO PRN (14:04)
[2020-05-05] MEDS ORDERED: SODIUM CHLORIDE 0.9% 1000ML 1,000 ML IV SCH (14:04)
[2020-05-05] MEDS ORDERED: ALUMINUM/MAGNESIUM SUSP 30 ML UDC PO PRN (14:04)
[2020-05-05] MEDS ORDERED: MAGNESIUM HYDROXIDE SUSP 30 ML UDC PO PRN (14:04)
[2020-05-05] MEDS ORDERED: ONDANSETRON INJ 2 MG/ML 2 ML VIAL IV PRN (14:04)
[2020-05-05 14:57] LABS: Appearance Urine Clear (Clear); Bilirubin Urine Negative (Negative); Blood Urine Negative (Negative); Color Urine Yellow; Glucose Urine UA Negative (Negative); Ketones Urine Trace (Negative); Leukocyte Esterase Urine Negative (Negative); Nitrite Urine Negative (Negative); Protein Urine Negative (Negative); Urobilinogen Urine Negative (Negative); pH Urine 7.5 (4.5-7.5)
[2020-05-05] MEDS ORDERED: PNEUMOCOCCAL Polysaccharide Vaccine 25mcg/0.5mL vial/Syr IM ONE (15:00)
[2020-05-05] MEDS ORDERED: HALOPERIDOL LACTATE 5 MG/ML 1 ML VIAL IM PRN (16:51)
[2020-05-05] MEDS: dexAMETHasone 4 MG TAB PO SCH ×3 (16:58→22:08)
[2020-05-05] MEDS: TAMSULOSIN HCL 0.4 MG CAP PO SCH (16:58)
[2020-05-05] MEDS: ALPRAZolam 0.5 MG TABLET PO PRN ×2 (17:22→22:08)
[2020-05-05] MEDS: NITROGLYCERIN 2% OINTMENT 30GM TUBE EXT SCH ×2 (17:22→22:08)
[2020-05-05] MEDS ORDERED: hydrALAZINE HCL 20 MG/ML VIAL IV ONE (23:41)
[2020-05-06] MEDS ORDERED: LORazepam 0.5 MG/1 ML VIAL IV STA (03:54)
[2020-05-06] MEDS: dexAMETHasone 4 MG TAB PO SCH ×5 (06:20→18:42)
[2020-05-06] MEDS: NITROGLYCERIN 2% OINTMENT 30GM TUBE EXT SCH ×4 (06:22→23:20)
[2020-05-06 08:40] LABS: Hematocrit (blood only) 39.9 % (42-52); Hemoglobin 13.5 g/dL (14.0-18.0); Mean Corpuscular Hemoglobin 32.9 pg (25-34); Mean Corpuscular Hgb Conc 33.8 g/dL (32-36); Mean Corpuscular Volume 97.3 fL (80-100); Mean Platelet Volume 10.8 fL (7.4-10.4); Platelet Count 203 K/uL (130-400); RDW Coefficient of Variation 14.7 % (11.5-14.5); RDW Standard Deviation 51.4 fL (36.4-46.3); White Blood Count 6.92 K/uL (4.8-10.8)
[2020-05-06 08:49] LABS: Estimated Average Glucose 120 mg/dl; Hemoglobin A1C 5.8 % (4.5-5.6)
[2020-05-06] MEDS: MULTIVITAMIN TAB PO SCH (09:02)
[2020-05-06] MEDS: lisinopril 40 MG TAB PO SCH (09:02)
[2020-05-06] MEDS: TRIAMTERENE/HCTZ 37.5/25MG TAB PO SCH (09:02)
[2020-05-06 09:10] LABS: Bilirubin Direct 0.4 mg/dl (0-0.2); Bilirubin,Total 1.3 mg/dl (0.2-1); Calcium 9.5 mg/dl (8.5-10.1); Est GFR (African American) 83.4; Est GFR (Non-African American) 71.9; Magnesium 1.8 mg/dl (1.8-2.4); Potassium 3.2 mmol/L (3.5-5.1)
[2020-05-06] MEDS ORDERED: ACETAMINOPHEN 325 MG TAB PO PRN (10:23)
--- NOTE | 2020-05-06 11:14 | Hospitalist Progress Note ---
Date of Service May 06, 2020 Assessment & Plan (1) Rectal cancer metastasized to lung: -rectal adenocarcinoma diagnosed in September 2012, recurrent disease involving lung parenchyma in March 2015 -had been following with [facility] oncology, Dr. Tin Rodriguez (2) Confusion: -presented to the ED on 05/05/2020 because his was concerned for 1 to 2 week of confusion and weakness (3) Metastasis to brain: with Vasogenic Edema -found on the CT head, CTA head scan in the ED on 05/05/2020 with Multiple intracranial lesions consistent with metastatic disease, also with mild mass effect along the left lateral ventricle due to the vasogenic edema -admitting team documents discussion with patient and his family members about goals of care on 05/05/2020 and initially started on oral Decadron 4 mg every 4 hours and updated patient's oncologist Dr. Rodriguez who agreed with initiating palliative care consult -however, based on assessment by hospitalist on 05/06/2020, there did not seem to be a good understanding of from the patient and his family members of the health and admission day discussions Patient was seen and evaluated in the AM needing some help with eating breakfast by nurse at the bedside. When Hospital doctor returned, patient was 2 assist with physical therapy and with walker to ambulate to and from the bathroom. 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 Right eye gaze intact. Other pertinent neurological finding that patient appeared to be more mobile and stronger of right upper extremity than compared to left upper extremity Patient awake and alert and verbal but needed hospitalist to explain to him and and his brother Mckinley [phone] about recent diagnosis of brain cancer with vasogenic edema. Patient and his brother agrees for patient to continue to stay in the hospital for further oral Decadron. They agree for palliative care consult to help with process to transfer to hospice level of care. They allow for radiation oncology to evaluate whether any palliative role of brain radiation. Hospitalist explained that typically, the plan for brain tumor with vasogenic edema would be to continue to treat with steroids and monitor clinically whether any further neurological impairments versus repeat brain imaging. -continue PT/OT evaluations -prognosis is poor -continue neurochecks as q4 hours when awake -pallative care consult and radiation oncology consult. Dr Kayla Rodriguez from radiation oncology report he will see patient but prior to radiation therapy, the patient would need MRI of the brain for the radiation planning (4) Pericardial effusion: -initially seen on admission CT, no chest pain symptoms -echocardiogram with mild loculated anterior pericardial effusion without hemodynamic compromise (5) Abnormal CT of the abdomen: -admission CT abd/pelvis: interloop edema involving loops of small bowel in the left midabdomen with minimal small bowel wall thickening. -on admission his reports 1 week ago of nausea/vomiting/diarrhea that has since resolved -patient eating the hospital food with dysphagia as per nurse -no current abdomen symptoms (6) HTN (hypertension): -continue lisinopril, triamterene/hctz, parameters in place (7) DVT prophylaxis: -SCD/TEDS Admission and Anticipated Discharge Date Admission Date: May 05, 2020 Subjective Patient was seen and evaluated in the AM needing some help with eating breakfast by nurse at the bedside. When Hospital doctor returned, patient was 2 assist with physical therapy and with walker to ambulate to and from the bathroom. 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 Right eye gaze intact. Other pertinent neurological finding that patient appeared to be more mobile and stronger of right upper extremity than compared to left upper extremity Patient awake and alert and verbal but needed hospitalist to explain to him and and his brother Mckinley [phone] about recent diagnosis of brain cancer with vasogenic edema. Patient and his brother agrees for patient to continue to stay in the hospital for further oral Decadron. They agree for palliative care consult to help with process to transfer to hospice level of care. They allow for radiation oncology to evaluate whether any palliative role of brain radiation. Hospitalist explained that typically, the plan for brain tumor with vasogenic edema would be to continue to treat with steroids and monitor clinically whether any further neurological impairments versus repeat brain imaging. Patient in no acute distress. no report of acute pain. no shortness of breath. breathing on room air. no vomiting. no fevers. 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 Right eye gaze intact. ENMT: external ear and nose normal, oropharynx normal Neck: normal visual inspection Respiratory: normal respiratory effort, lungs clear to auscultation Cardiovascular: Rate/Rhythm: regular rate Gastrointestinal (Abdomen): normal bowel sounds, soft, nontender, no hepatosplenomegaly Musculoskeletal: patient was 2 assist with physical therapy and with walker to ambulate to and from the bathroom. Neurologic: Other pertinent neurological finding that patient appeared to be more mobile and stronger of right upper extremity than compared to left upper extremity Psychiatric: Orientation: alert and cooperative Results & Data Results & Data ([facility]) Vital Signs (Past 12 Hours) Vital Signs Temp Pulse Resp BP Pulse Ox 05/06/20 06:39 36.5 C 72 20 159/87 H 94 (1) HTN (hypertension) Hypertension type: unspecified Qualified Code(s): I10 - Essential (primary) hypertension
--- NOTE | 2020-05-06 13:31 | Radiation OncologyConsultation ---
Date of Consultation May 06, 2020 Assessment & Plan (1) Metastasis to brain: Assessment: Mr. 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 According to the patient, he has been recently receiving chemotherapy underneath the supervision of medical oncology [facility]. Prior to that, the patient has been followed by Dr. Tin Rodriguez for medical oncology at [facility]. The patient was brought into the emergency room and was found to have multiple intracranial metastasis and a CT of head. The primary hospital team is requesting palliative care consultation to assess the patient. The patient has been started on dexamethasone. I been asked to evaluate the patient regarding potential radiation therapy. Treatment Options: 1. Radiation therapy to the brain metastasis. SBRT (5 fractions) would be the preferable choice however whole brain radiation therapy is also an option (10 fractions). 2. Best supportive care. Recommendation: MRI of the brain would be very helpful in determining the role of external beam radiation therapy even in the palliative setting. Plan: 1. Recommendation is for MRI of the brain. After the study is completed, we can review potential treatment options versus patient transitioning to hospice. 2. Consider lowering dexamethasone to 4 mg twice a day to potentially help with agitation from dexamethasone. 3. Patient and family encouraged to call us with any further questions or concerns. (2) Rectal cancer metastasized to lung: History of Present Illness Attending Physician: Chon Chatman MD History of Present Illness 2012. Patient diagnosed with rectal adenocarcinoma. Status post neoadjuvant chemotherapy and radiation therapy followed by OCT. 07/30 lymph nodes positive for metastatic disease. 2014. Progression of rectal cancer to metastatic cancer involving lung. 05/2015 to 01/2017. Xeloda chemotherapy. 01/2017 to 11/2017. No treatment. 11/14/2019. PET/CT. IMPRESSION: 1. Findings of multifocal pulmonary metastatic disease have significantly progressed from the most recent prior study dated 05/10/2018. 2. There is postoperative change from lower anterior resection with left lower quadrant colostomy. No bowel obstruction is seen. 3. There is no evidence of metastatic disease in the abdomen or pelvis. 4. There is no airspace consolidation or pleural effusion. 5. Additional findings as above. 11/15/2019. Medical oncology follow-up with Dr. Rodriguez. Recommendation is to proceed with chemotherapy. Patient is on interested in systemic therapy. 02/2020. Patient ultimately elected to transfer medical oncology care to [facility] in [place], [place]. Records are unavailable at this point. 05/05/2020. Patient presents to emergency room with weakness and nausea, vomiting, diarrhea. Patient admitted to hospital for further work-up and evaluation. 05/05/2020. CT of head. IMPRESSION: 1. No significant stenosis, occlusion, or aneurysm within the [place]. 2. No significant stenosis, occlusion, or dissection identified within the carotid or vertebral arteries. 3. Multiple intracranial lesions consistent with metastatic disease. These are hyperdense favoring hemorrhagic metastatic foci. 4. The patient's known pulmonary metastatic disease is better appreciated on the prior studies. 05/05/2020. CTA of head. IMPRESSION: 1. No significant stenosis, occlusion, or aneurysm within the [place]. 2. No significant stenosis, occlusion, or dissection identified within the carotid or vertebral arteries. 3. Multiple intracranial lesions consistent with metastatic disease. These are hyperdense favoring hemorrhagic metastatic foci. 4. The patient's known pulmonary metastatic disease is better appreciated on the prior studies. 05/05/2020. CT of abdomen/pelvis. IMPRESSION: 1. There is interloop edema involving loops of small bowel in the left midabdomen with minimal small bowel wall thickening. Correlate clinically for evidence of a nonspecific enteritis. 2. Cardiomegaly and moderate pericardial effusion. This has increased in size from 11/14/2019. 3. Pulmonary metastatic disease appears modestly progressive as compared to 11/14/2019. 4. Trace right pleural effusion. 5. Moderate constipation. 6. Postoperative change from proctocolectomy with left lower quadrant colostomy. No bowel obstruction is seen. 7. Additional findings as above. Allergies Allergy/AdvReac Type Severity Reaction Status Date / Time diphenhydramine Allergy Mild RASH ALL Verified 10/17/18 13:24 ANTIHISTAMINES TYPE UNKNOWN Sulfa (Sulfonamide AdvReac Mild GI SYMPTOMS Verified 10/17/18 13:24 Antibiotics) aspirin AdvReac Unknown PT VERY Unverified 10/17/18 13:24 VAGUE WITH SYMPTOMS Home Medications Home Medications Medication Instructions Recorded Confirmed Type alprazolam 1 mg tablet 1 mg PO BID PRN 08/03/18 05/05/20 History lisinopril 40 mg tablet 40 mg PO DAILY 08/03/18 05/05/20 History multivitamin 1 cap PO DAILY 08/03/18 05/05/20 History sulindac 200 mg tablet 200 mg PO BID 08/03/18 05/05/20 History tamsulosin 0.4 mg capsule 0.4 mg PO DAILY 08/03/18 05/05/20 History triamterene 75 1 tab PO DAILY 08/03/18 05/05/20 History mg-hydrochlorothiazide 50 mg tablet oxycodone 10 mg tablet 10 mg PO TID PRN tab 10/17/18 05/05/20 History capecitabine 500 mg PO BID 05/05/20 05/05/20 History Patient History Medical History (Updated 05/05/20 @ 16:13 by Todd Mckeon DO) Arthritis Colon cancer [address] Enlarged prostate High blood pressure alcohol related Surgical History History of bowel resection Previous back surgery 08/2017 and 12/2016 Family History Father Cancer Throat Mother Hypertension Social History Smoking Status: Former smoker Tobacco Type: Cigarettes packs per day: 2; Years Smoked: 27; Hx Alcohol Use: Yes Alcohol type: beer Alcohol Intake Frequency Comment: unable to assess freq due to pt not reliable Hx Substance Use: No Preferred Language: Icelandic Communication Ability: Impaired Visual Impairment: No Limitations Hearing Ability: Normal Kosher Butcher Required: No Beliefs That Will Affect Care: None marital status: Current Living Situation: Spouse current occupational status: retired current occupation: [employer] Feels Safe at Home: Yes Safety Concerns: Feels Safe At This Time Assistive Devices: None Review of Systems Review of Systems: All systems reviewed & are unremarkable except as noted in HPI & below Patient does complain of some confusion. Patient does have some minimal headaches. Otherwise he has no complaints Physical Exam Constitutional: WD/WN, vitals as above well developed and well nourished Eyes: PERRL, conjunctivae normal, anicteric sclerae ENMT: external ear and nose normal, oropharynx normal Neck: trachea midline, no thyromegaly Respiratory: normal respiratory effort, lungs clear to auscultation Cardiovascular: RRR, no murmur, no edema Gastrointestinal (Abdomen): normal bowel sounds, soft, nontender, no hepatosplenomegaly Musculoskeletal: no cyanosis or clubbing, extremities motor strength 5/5 Skin: no rashes, warm and dry Neurologic: patellar DTR's 2+ bilat, sensation intact and PERRL, EOMI, accommodation nl, no face palsy, no dysarthria Psychiatric: A+Ox3, euthymic affect
--- NOTE | 2020-05-06 14:13 | Palliative Care Consultation ---
Date of Consultation May 06, 2020 Assessment & Plan (1) Palliative care encounter: I met with Mr. Lucero in his room, but no family was present. He is aware that he has cancer and that he will likely from this. I talked with him about recent spread to his brain and possibility of radiation treatment if indicated according to Dr. Rodriguez. He is agreeable to this but denies any fears or worries about dying. Given brain mets in addition to known lung mets, as well as his decreased functional status, his prognosis is poor. He would be appropriate for hospice if radiation is not indicated. I called his to discuss this in more detail but she did not answer. MRI is pending to determine feasibility of radiation therapy. I will continue to reach out to his to discuss plan. If he requires two person assist for transfer, it seems unlikely that she would be able to manage his care at home as she is having her own health problems but we will clarify this. Thank you for allowing us to participate in the care of this gentleman. (2) Rectal cancer metastasized to lung: (3) Metastasis to brain: History of Present Illness Reason for Consultation: Plan of care Requesting Physician: Dr. Chon Chatman Attending Physician: Chon Chatman MD History of Present Illness 74 yo gentleman with rectal cancer originally diagnosed in 2012. He has known metastatic disease to his lungs bilaterally. He had been noted to have functional decline with increased confusion and forgetfulness as well as unsteady gait and falls at home. He was admitted to the hospital on 05/05 after presenting with mental status changes. He had head CT which showed multiple bra in lesions with vasogenic edema consistent with metastatic disease. The most prominent lesion being a left frontal lobe lesion measuring 2.4 cm with edema and a mild left shift. He has been on IV decadron and is being evaluated by radiation oncology for possible radiation treatment. He has had some periods of agitation. On my visit, he is awake and alert. He denies pain or discomfort. He tells me that he has "a touch of cancer" and doesn't expect to be around for long. Per nursing staff he has been voiding and has formed stool in his ostomy bag. He has been out of bed to the chair and to the bathroom but is at least a one person, if not two person, assist for this. Unfortunately, his has been hospitalized in another hospital for gall bladder problems at the same time. He is aware of this and asked me if she was being discharged today. Allergies Allergy/AdvReac Type Severity Reaction Status Date / Time diphenhydramine Allergy Mild RASH ALL Verified 10/17/18 13:24 ANTIHISTAMINES TYPE UNKNOWN Sulfa (Sulfonamide AdvReac Mild GI SYMPTOMS Verified 10/17/18 13:24 Antibiotics) aspirin AdvReac Unknown PT VERY Unverified 10/17/18 13:24 VAGUE WITH SYMPTOMS Home Medications Home Medications Medication Instructions Recorded Confirmed Type alprazolam 1 mg tablet 1 mg PO BID PRN 08/03/18 05/05/20 History lisinopril 40 mg tablet 40 mg PO DAILY 08/03/18 05/05/20 History multivitamin 1 cap PO DAILY 08/03/18 05/05/20 History sulindac 200 mg tablet 200 mg PO BID 08/03/18 05/05/20 History tamsulosin 0.4 mg capsule 0.4 mg PO DAILY 08/03/18 05/05/20 History triamterene 75 1 tab PO DAILY 08/03/18 05/05/20 History mg-hydrochlorothiazide 50 mg tablet oxycodone 10 mg tablet 10 mg PO TID PRN tab 10/17/18 05/05/20 History capecitabine 500 mg PO BID 05/05/20 05/05/20 History Patient History Medical History Arthritis Colon cancer [address] Enlarged prostate High blood pressure alcohol related Surgical History History of bowel resection Previous back surgery 08/2017 and 12/2016 Family History Father Cancer Throat Mother Hypertension Social History Smoking Status: Former smoker Tobacco Type: Cigarettes packs per day: 2; Years Smoked: 27; Hx Alcohol Use: Yes Alcohol type: beer Alcohol Intake Frequency Comment: unable to assess freq due to pt not reliable Hx Substance Use: No Preferred Language: Khmer Communication Ability: Effective Visual Impairment: No Limitations Hearing Ability: Normal Death Claim Clerk Required: No Beliefs That Will Affect Care: None marital status: Current Living Situation: Spouse current occupational status: retired current occupation: [employer] Feels Safe at Home: Yes Safety Concerns: Feels Safe At This Time Assistive Devices: None Review of Systems Review of Systems: [place] Symptom Assessment Scale Pain 0/3 Dyspnea 0/3 Nausea 0/3 Anxiety 0/3 Depression 0/3 Anorexia 0/3 Constitutional: no fever, no chills and no sweats Eyes: no problem reported Ear, Nose, Mouth, Throat: no pain with swallowing Respiratory: no cough and no dyspnea Cardiovascular: no chest pain Gastrointestinal: no abdominal pain, no nausea, no vomiting and no constipation Genitourinary: no difficulty urinating Musculoskeletal: left arm and leg weakness Integumentary: no rash Neurologic: + gait abnormality, + unsteadiness and + localized weakness; no headache(s) Psychiatric: + confusion; no depression and no anxiety Physical Exam Constitutional: no acute distress Respiratory: normal respiratory effort; no labored breathing Cardiovascular: Rate/Rhythm: regular rate and regular rhythm Gastrointestinal (Abdomen): ostomy patent with gas in bag Musculoskeletal: unsteady gait requiring assistance, moving all extremities Skin: no rashes, warm and dry Neurologic: awake and + confused Speech / Cognition: normal speech Psychiatric: Orientation: alert, oriented to person and oriented to place Results & Data ([facility]) Vital Signs (Past 12 Hours) Vital Signs Temp Pulse Resp BP Pulse Ox 05/06/20 12:06 162/84 H 05/06/20 06:39 97.7 F 72 20 159/87 H 94 PG Care Time/CCT Total # of Minutes Spent Total Time Spent with Patient: Total time spent is greater than 50% in coordination of care (as documented) at patient's floor/unit and/or counseling patient:62 minutes with more than 50% of time spent on coordination of care, goals of care. Coding Level of Care Code 64014 Inpt Consult Level 3 Diagnoses Palliative care encounter Z51.5 Rectal cancer metastasized to lung C20; C78.00 Metastasis to brain C79.31 Comment [id number]
[2020-05-06] MEDS ORDERED: MAGNESIUM SULFATE / D5W 1 GM/100 ML BAG IV ONE (15:00)
[2020-05-06] MEDS ORDERED: MAGNESIUM OXIDE 400 MG TAB PO ONE (15:00)
[2020-05-06] MEDS ORDERED: POTASSIUM CHLORIDE CRTAB 20 MEQ TABCR PO ONE (15:00)
[2020-05-06] MEDS ORDERED: GADOBUTROL 65ML VIAL IV ONE (15:49)
--- NOTE | 2020-05-06 16:12 | Magnetic Resonance Report ---
MRI OF THE BRAIN COMBO CLINICAL HISTORY: Colorectal carcinoma. COMPARISON STUDY: CT of the brain dated 05/05/2020. TECHNIQUE: MRI of the brain was performed utilizing various T1 and T2-weighted sequences in the axial , sagittal, and coronal planes. Contrast-enhanced sequences were acquired following the administratio n of 8.5 cc of Gadavist. The examination is compromised by motion artifact. FINDINGS: Brain parenchyma: There is evidence of extensive/multifocal intracranial metastatic disease. There ar e least 5 supratentorial lesions seen. A 2.4 cm lesion is seen in the left frontal lobe is seen on im age #70, and a 1.3 cm lesion in the right frontal lobe as seen on image #62. A solid and cystic lesio n in the left occipital lobe on image #72 with a mural nodule measures 3.4 cm. A high right parietal lobe lesion on image #107 measures 1.5 cm. These lesions demonstrate significant surrounding edema wi th effacement of the overlying cortical sulci. There is no significant midline shift. The frontal hor n of the left lateral ventricle is effaced. There are least 9 cerebellar lesions identified with sign ificant surrounding edema. The largest lesion is seen in the left lobe on image #37 of 124 and measur es 1.6 cm. There is age-related involutional change noting mild subcortical and periventricular micr oangiopathic disease. There is no restricted diffusion typical for acute ischemia. No extra-axial flu id collection is seen. A prominent perivascular space is noted in the left basal ganglia. The cerebel lar tonsils are normal in configuration. Ventricles, sulci, and cisterns: Prominent secondary to involutional change. See above. Pituitary and sella: Unremarkable. Intracranial vasculature: Normal flow voids are maintained at the skull base. Orbits: The bony orbits are grossly intact. Orbital contents are normal in appearance noting a right ocular lens implant. Sinuses and mastoids: Clear. Calvarium: No destructive bony lesion is seen. Cervical cord: Partially visualized cervical spinal cord is normal in morphology and signal intensity . IMPRESSION: 1. There is evidence of extensive/multifocal intracranial metastatic disease as above. 2. These lesions demonstrate significant surrounding edema with effacement of the overlying cortical sulci. There is no significant midline shift. 3. There is no hemorrhage or evidence of acute ischemia. ACT 112: Negative or not required by law. Electronically signed by: Lino Ricci M.D. 05/06/2020 4:11 PM
[2020-05-06] MEDS: POTASSIUM ACETATE 10 MEQ in 0.9 % SODIUM CHLORIDE 100 ML IV SCH ×2 (18:41→20:11)
[2020-05-06] MEDS: MAGNESIUM OXIDE 400 MG TAB PO SCH (20:12)
[2020-05-07] MEDS: ALPRAZolam 0.5 MG TABLET PO PRN (01:29)
[2020-05-07] MEDS: NITROGLYCERIN 2% OINTMENT 30GM TUBE EXT SCH ×4 (05:57→23:14)
[2020-05-07 08:15] LABS: Albumin Level 3.4 gm/dl (3.4-5.0); BUN Creatinine Ratio 22.5 (10-20); Creatinine Clr Calc Pharmacy 71.9 ml/min; Est GFR (African American) 90.9; Est GFR (Non-African American) 78.4; Potassium 3.6 mmol/L (3.5-5.1)
[2020-05-07 08:18] LABS: Albumin Globulin Ratio 1.2 (0.9-2); Bilirubin,Total 0.8 mg/dl (0.2-1); Globulin 2.9 gm/dl (2.5-4.0); Hematocrit (blood only) 39.1 % (42-52); Hemoglobin 13.7 g/dL (14.0-18.0); Mean Corpuscular Hemoglobin 33.2 pg (25-34); Mean Corpuscular Volume 94.7 fL (80-100); Mean Platelet Volume 10.6 fL (7.4-10.4); Platelet Count 230 K/uL (130-400); RDW Coefficient of Variation 14.9 % (11.5-14.5); Red Blood Count 4.13 M/uL (4.7-6.1); Total Protein 6.3 gm/dl (6.4-8.2); White Blood Count 17.31 K/uL (4.8-10.8)
[2020-05-07 08:19] LABS: Immature Granulocytes # (auto) 0.06 K/uL (0.00-0.02); Immature Granulocytes % (auto) 0.3 %; Lymphocytes # (auto) 1.39 K/uL (1.2-3.4); Monocytes # (auto) 0.71 K/uL (0.11-0.59); Monocytes % (auto) 4.1 %; Neutrophils # (auto) 15.15 K/uL (1.4-6.5); Neutrophils % (auto) 87.6 %; RBC Morphology Unremarkable
[2020-05-07] MEDS: TRIAMTERENE/HCTZ 37.5/25MG TAB PO SCH (08:24)
[2020-05-07] MEDS: dexAMETHasone 4 MG TAB PO SCH ×2 (08:24→20:36)
[2020-05-07] MEDS: lisinopril 40 MG TAB PO SCH (08:25)
[2020-05-07] MEDS: MAGNESIUM OXIDE 400 MG TAB PO SCH ×2 (08:25→20:36)
[2020-05-07] MEDS: MULTIVITAMIN TAB PO SCH (08:25)
[2020-05-07] MEDS: TAMSULOSIN HCL 0.4 MG CAP PO SCH (08:25)
--- NOTE | 2020-05-07 12:11 | Radiation Oncology Progress Nt ---
Date of Service May 07, 2020 Assessment & Plan (1) Metastasis to brain: Assessment: Mr. 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 According to the patient, he has been recently receiving chemotherapy underneath the supervision of medical oncology [facility]. Prior to that, the patient has been followed by Dr. Tin Rodriguez for medical oncology at [facility]. The patient was brought into the emergency room and was found to have multiple intracranial metastasis and a CT of head. The primary hospital team is requesting palliative care consultation to assess the patient. The patient has been started on dexamethasone. I saw the patient in consultation yesterday. I recommended that the primary team obtain new MRI of the brain. This was completed and did reveal widespread metastatic disease. In the interim, the patient's overall performance status is not improved. He does remain confused. Today, I did see the patient and I also spoke with his on the phone. Treatment Options Discussed: 1. Radiation therapy to the brain metastasis. 2. Best supportive care. Plan: 1. The patient's who is next of kin has explained to me that the family's wishes are for the patient to come home on hospice. I explained to her that I believe that is reasonable. There is no further role for radiation therapy. 2. Patient and family encouraged to call us with any further questions or concerns. (2) Rectal cancer metastasized to lung: Admission and Anticipated Discharge Date Admission Date: May 05, 2020
--- NOTE | 2020-05-07 14:18 | Palliative Care Progress Note ---
Date of Service May 07, 2020 Assessment & Plan (1) Palliative care encounter: I met with Mao, his and granddaughter at bedside. She is doing well after her hospitalization and has f/u with her physician tomorrow. Her goal is to have Mao return home on Tuesday with hospice care to follow at home. She has a lot of support, including a daughter who lives nearby. She is certain that she wants to care for him at home with focus on comfort. Case management has arranged hospice with [facility] and ordered equipment in anticipation of his discharge. (2) Rectal cancer metastasized to lung: (3) Metastasis to brain: Admission and Anticipated Discharge Date Admission Date: May 05, 2020 Subjective Sitting up in chair. Laughing and visiting with and granddaughter. He c/o pain in his knees after recent fall. He is frequently trying to get up and leave but is easily redirected. Review of Systems Review of Systems: [place] Symptom Assessment Scale Pain 1/3 Dyspnea 0/3 Anxiety 0/3 Nausea 0/3 Physical Exam Constitutional: + altered mental status Respiratory: normal respiratory effort; no labored breathing Cardiovascular: Extremities: no edema Musculoskeletal: Extremities: extremities normal to inspection and strength 5/5 throughout Skin: warm and dry Neurologic: + confused Results & Data ([facility]) Vital Signs (Past 12 Hours) Vital Signs Temp Pulse Resp BP Pulse Ox 05/07/20 07:30 97.9 F 79 20 166/84 H 95 PG Care Time/CCT Total # of Minutes Spent Total Time Spent with Patient: Total time spent is greater than 50% in coordination of care (as documented) at patient's floor/unit and/or counseling patient: 25 minutes total with more than 50% of time spent on coordination of care and family support. Coding Level of Care Code 12071 Subseq Hosp Care Lvl 2 Diagnoses Palliative care encounter Z51.5 Rectal cancer metastasized to lung C20; C78.00 Metastasis to brain C79.31
--- NOTE | 2020-05-07 15:40 | Hospitalist Progress Note ---
Date of Service May 07, 2020 Assessment & Plan (1) Rectal cancer metastasized to lung: -rectal adenocarcinoma diagnosed in September 2012, recurrent disease involving lung parenchyma in March 2015 -had been following with [facility] oncology, Dr. Tin Rodriguez (2) Confusion: he is not appearing oriented but is not exhibiting delirium. Able to follow instructions. Part of this may have been a steroid side effect, which was recently decreased from q4h to q12h to help control the vasogenic edema. (3) Metastasis to brain: new finding on head imaging. Brain MRI ordered per Rad Onc request as patient and are considering XRT therapy. Rad Onc to discuss further with them today. Cont decadron at q12h dosing. (4) Pericardial effusion: -initially seen on admission CT, no chest pain symptoms -echocardiogram with mild loculated anterior pericardial effusion without hemodynamic compromise -no further workup at this time with terminal illness and no hemodynamic compromise. -patient has known pulmonary metastatic disease (5) Abnormal CT of the abdomen: -admission CT abd/pelvis: interloop edema involving loops of small bowel in the left midabdomen with minimal small bowel wall thickening. -on admission his reports 1 week ago of nausea/vomiting/diarrhea that has since resolved -patient eating the hospital food with dysphagia as per nurse -no current abdomen symptoms -no further workup needed at this time. (6) HTN (hypertension): -continue lisinopril, triamterene/hctz, parameters in place (7) DVT prophylaxis: -SCD/TEDS (chemoprophy contraindicated in setting of brain metastases) DNR Dispo-uncertain at this time. Nandini Ramsey DO [facility] Hospitalist Admission and Anticipated Discharge Date Admission Date: May 05, 2020 Subjective Acute urinary retention Mr. Lucero reports no pain and is giving me short answers. For example I asked if he understands his diagnosis and he said "it is bad". I spoke with him about radiation therapy, and he reported no one came to talk to him this morning. Although I spoke with Dr. Kayla Rodriguez and he said he spoke with both the patient and his . The nurses in the room and states to me that he is not only having more memory loss this morning but also has more difficulty ambulating that he did yesterday. The patient is notably frustrated with some of the physical declines he is dealing with. He is able to tolerate p.o. and is just finished lunch. Review of Systems 2 Review of Systems: All systems reviewed & are unremarkable except as noted in Subjective Physical Exam Physical Exam: CONSTITUTIONAL: WNWD, vitals as above, generally well- appearing EYES: normal conjunctivae, no scleral icterus, permanent lateral gaze of left eye. ENT: external ear and nose normal, MMM RESPIRATORY: clear to auscultation bilaterally, no crackles, rales or wheezes, normal respiratory effort CARDIOVASCULAR: regular rate and rhythm, S1 and 2 heard without murmurs, gallops or rubs, no JVD, no peripheral edema GASTROINTESTINAL: soft, nontender, nondistended, colostomy in place with normal appearing stool. MUSCULOSKELETAL: strength 5/5 throughout, head is normocephalic and atraumatic SKIN: warm and dry NEUROLOGIC: patellar DTRs 2+ bilat. PERRL, EOMI, no facial palsy, no dysarthria. Touch, pain and proprioception normal. CN 2-12 grossly intact, no sensory deficit, normal cognition, normal speech, no tremor PSYCHIATRIC: alert and cooperative Results & Data Results & Data ([facility]) Vital Signs (Past 12 Hours) Vital Signs Temp Pulse Resp BP Pulse Ox 05/07/20 15:24 36.7 C 75 18 165/81 H 95 05/07/20 07:30 36.6 C 79 20 166/84 H 95 (1) HTN (hypertension) Hypertension type: unspecified Qualified Code(s): I10 - Essential (primary) hypertension
[2020-05-08] MEDS: oxyCODONE HCL IR 5 MG TAB (IMMEDIATE RELEASE) PO PRN ×4 (00:31→21:04)
[2020-05-08] MEDS: NITROGLYCERIN 2% OINTMENT 30GM TUBE EXT SCH (04:57)
[2020-05-08] MEDS: MAGNESIUM OXIDE 400 MG TAB PO SCH ×2 (08:23→20:43)
[2020-05-08] MEDS: dexAMETHasone 4 MG TAB PO SCH ×2 (08:23→20:43)
[2020-05-08] MEDS: TRIAMTERENE/HCTZ 37.5/25MG TAB PO SCH (08:23)
[2020-05-08] MEDS: TAMSULOSIN HCL 0.4 MG CAP PO SCH (08:23)
[2020-05-08] MEDS: lisinopril 40 MG TAB PO SCH (08:24)
[2020-05-08] MEDS: MULTIVITAMIN TAB PO SCH (08:24)
--- NOTE | 2020-05-08 14:43 | Palliative Care Progress Note ---
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 Having knee pain related to recent fall. Continue oxycodone prn. Anticipate discharge home tomorrow with hospice. is having f/u appointment today after her hospitalization but feels confident that she has support to care for him at home. Admission and Anticipated Discharge Date Admission Date: May 05, 2020 Subjective Visiting with his brother. He c/o pain in his knees and is agreeable to medication today. He did have oxycodone this morning for pain also. Review of Systems Review of Systems: [place] Symptom Assessment Scale Pain 2/3 Dyspnea 0/3 Nausea 0/3 Anxiety 0/3 Depression 0/3 Drowsiness 0/3 Physical Exam Constitutional: no acute distress Respiratory: normal respiratory effort; no labored breathing Neurologic: left sided weakness Psychiatric: Orientation: alert and cooperative Results & Data ([facility]) Vital Signs (Past 12 Hours) Vital Signs Temp Pulse Pulse Resp BP Pulse Ox 05/08/20 06:50 98.2 F 61 16 178/80 H 96 05/08/20 04:58 98.2 F 58 L 18 169/78 H 95 PG Care Time/CCT Total # of Minutes Spent Total Time Spent with Patient: Total time spent is greater than 50% in coordi nation of care (as documented) at patient's floor/unit and/or counseling patient:10 minutes Coding Level of Care Code 11122 Subseq Hosp Care Lvl 1 Diagnoses Palliative care encounter Z51.5 Time Spent (min) 10
--- NOTE | 2020-05-08 15:24 | Hospitalist Progress Note ---
Date of Service May 08, 2020 Assessment & Plan (1) Rectal cancer metastasized to lung: -rectal adenocarcinoma diagnosed in September 2012, recurrent disease involving lung parenchyma in March 2015 -had been following with [facility] oncology, Dr. Tin Rodriguez (2) Confusion: today he is oriented and following instructions. He appears improved clinically. (3) Metastasis to brain: new finding on head imaging this admission. Per conversation with Rad Onc provider, patient and wish to avoid XRT therapy at this time. Hospice care is currently being setup for discharge to home with Hospice. (4) Pericardial effusion: -initially seen on admission CT, no chest pain symptoms -echocardiogram with mild loculated anterior pericardial effusion without he modynamic compromise -no further workup at this time with terminal illness and no hemodynamic compromise. -patient has known pulmonary metastatic disease (5) Abnormal CT of the abdomen: -admission CT abd/pelvis: interloop edema involving loops of small bowel in the left midabdomen with minimal small bowel wall thickening. -on admission his reports 1 week ago of nausea/vomiting/diarrhea that has since resolved -patient eating the hospital food with dysphagia as per nurse -no current abdomen symptoms -no further workup needed at this time. (6) HTN (hypertension): continue lisinopril, triamterene/hctz per home regimen. (7) DVT prophylaxis: SCD/TEDS (chemoprophy contraindicated in setting of brain metastases) DNR Dispo-Home with Hospice. Nandini Ramsey DO [facility] Hospitalist Admission and Anticipated Discharge Date Admission Date: May 05, 2020 Subjective pt reports feeling well oriented to person place and time was on 1 to 1 obs when I arrived, however, both the nurse and I felt this could be removed. Uncertain why this was placed overnight. Pt denies pain, headache, abdominal pain Unable to tell me his diagnosis? Review of Systems Review of Systems: All systems reviewed & are unremarkable except as noted in Subjective Physical Exam Physical Exam: CONSTITUTIONAL: WNWD, vitals as above, generally well- appearing EYES: EOMI bilaterally, lateral deviation of the left eye, normal conjunctivae, no scleral icterus ENT: external ear and nose normal, MMM RESPIRATORY: clear to auscultation bilaterally, no crackles, rales or wheezes, normal respiratory effort CARDIOVASCULAR: regular rate and rhythm, S1 and 2 heard without murmurs, gallops or rubs, no JVD, no peripheral edema GASTROINTESTINAL: normal bowel sounds, soft, nontender, nondistended. MUSCULOSKELETAL: strength 5/5 throughout, head is normocephalic and atraumatic. Left arm appears to have weakness, however, he demonstrates full ROM, 5/5 strength throughout, intact proprioception and intact sensation. Gait was not assessed. SKIN: warm and dry NEUROLOGIC: No facial palsy, no dysarthria. CN 2-12 grossly intact, no sensory deficit, normal cognition, normal speech, no tremor PSYCHIATRIC: alert cooperative and oriented to person, place and time. Results & Data Results & Data ([facility]) Vital Signs (Past 12 Hours) Vital Signs Temp Pulse Pulse Resp BP Pulse Ox 05/08/20 15:12 36.7 C 71 16 162/77 H 98 05/08/20 06:50 36.8 C 61 16 178/80 H 96 05/08/20 04:58 36.8 C 58 L 18 169/78 H 95 Medications Administered Current Inpatient Medications Acetaminophen (Acetaminophen 325 Mg Tab) 325 mg PO Q6H PRN PRN Reason: pain/fever Stop: 06/04/20 14:03 Alprazolam (Alprazolam 0.5 Mg Tablet) 1 mg PO BID PRN PRN Reason: Anxiety Stop: 06/04/20 14:03 Last Admin: 05/07/20 01:29 Dose: 1 mg Documented by: Dexamethasone (Dexamethasone 4 Mg Tab) 4 mg PO BID MYA Stop: 06/06/20 08:59 Last Admin: 05/08/20 08:23 Dose: 4 mg Documented by: Lisinopril (Lisinopril 40 Mg Tab) 40 mg PO DAILY MYA Stop: 06/05/20 08:59 Last Admin: 05/08/20 08:24 Dose: 40 mg Documented by: Magnesium Oxide (Magnesium Oxide 400 Mg Tab) 400 mg PO BID MYA Stop: 06/05/20 20:59 Last Admin: 05/08/20 08:23 Dose: 400 mg Documented by: Multivitamins (Multivitamin Tab) 1 tab PO DAILY MYA Stop: 06/05/20 08:59 Last Admin: 05/08/20 08:24 Dose: 1 tab Documented by: Ondansetron HCl (Ondansetron Inj 2 Mg/Ml 2 Ml Vial) 4 mg IV Q6H PRN PRN Reason: Nausea Stop: 06/04/20 14:03 Oxycodone HCl (Oxycodone Hcl Ir 5 Mg Tab (Immediate Release)) 10 mg PO TID PRN PRN Reason: Pain Stop: 05/19/20 14:03 Last Admin: 05/08/20 14:29 Dose: 10 mg Documented by: Polyethylene Glycol (Polyethylene (Miralax) 17 Gm Pack) 17 gm PO DAILY PRN PRN Reason: Constipation Stop: 06/04/20 14:03 Tamsulosin HCl (Tamsulosin Hcl 0.4 Mg Cap) 0.4 mg PO DAILY MYA Stop: 06/05/20 08:59 Last Admin: 05/08/20 08:23 Dose: 0.4 mg Documented by: Triamterene/HCTZ (Triamterene/Hctz 37.5/25mg Tab) 2 tab PO DAILY MYA Stop: 06/07/20 08:59 Last Admin: 05/08/20 08:23 Dose: 2 tab Documented by: (1) HTN (hypertension) Hypertension type: unspecified Qualified Code(s): I10 - Essential (primary) hypertension
[2020-05-09] MEDS: oxyCODONE HCL IR 5 MG TAB (IMMEDIATE RELEASE) PO PRN (05:00)
--- NOTE | 2020-05-09 08:04 | Discharge Summary ---
Date of Service May 09, 2020 Admission HPI Per Admitting Provider This is a 74-year-old male who has significant past medical history of rectal cancer with known mets to both lungs, HTN, BPH, osteoarthritis who presents to ED secondary to confusion and weakness x1 week. Patient's brother is at bedside. Unfortunately could not be here as she is currently in [facility] undergoing cholecystectomy. According to who I did speak with on the phone she called EMS this morning secondary to worsening confusion and weakness for 1 week. She stated approximately 2 weeks ago patient did have GI bug with nausea and diarrhea. This has since resolved. For the past 1 week she has noticed progressive confusion. She noted for the past couple months he had been getting more confused, but over the past week has gotten worse. He has had 2 falls and she feels his gait is unsteady. ROS is unobtainable from pt and brother and bedside states, " I only knew this started 3 hours ago." noted over the past week pt would forget things he would know. 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 Pt denies f/c/s, dizzy, lightheaded, chest pain, sob, n/v/d, abdominal pain, RODRIGUEZ, change it vision but again ROS unreliable. In ED remained hemodynamically stable although was mildly hypertensive. He would answer questions, but not accurate. He was also very restless. CBC revealed mild anemia with H&H 12.5 and 37.7, CMP generally unremarkable except mild hyperglycemia at 131, total bilirubin 1.4. Head and Neck CT revealed multiple intracranial lesions consistent with metastatic disease. These are hyperdense favoring hemorrhagic metastatic foci. No significant stenosis, occlusion or aneurysm within the knik of [place] or carotid or vertebral arteries. CT abd/pelvis: 1. There is interloop edema involving loops of small bowel in the left midabdomen with minimal small bowel wall thickening. Correlate clinically for evidence of a nonspecific enteritis. 2. Cardiomegaly and moderate pericardial effusion. In ED pt received IVF and zofran. Admission Exam Per Admitting Provider Constitutional: WD/WN, Male, restless, tangential, vitals as above, sitting up in bed, pleasant, answers questions but not always accurate or appopriate Head: Normocephalic, Atraumatic Eyes: PERRL,L conjugate gaze, conjunctivae normal, anicteric sclerae ENMT: external ear and nose normal, oropharynx normal Neck: trachea midline, no thyromegaly normal visual inspection Respiratory: normal respiratory effort, lungs clear to auscultation, no wheeze, rales, rhonchi. Normal insp/exp effort, no accessory muscle use Cardiovascular: RRR, no murmur, no edema, b/l lower ext varicosities noted. Vessels: no JVD or carotid bruit Chest: normal inspection of chest Abdomen: +LLQ colostomy, normal bowel sounds, soft, nontender, no hepatosplenomegaly Musculoskeletal: no cyanosis or clubbing, extremities motor strength 5/5 Skin: no rashes, warm and dry moderate turgor Neurologic: PERRL, EOMI, accommodation nl, no face palsy, no dysarthria CN's II-XI intact bilaterally and moves all extremities Psychiatric: Alert to self only, euthymic affect Lymphatic: no cervical or axillary lymphadenopathy : deferred Principal Diagnosis Rectal cancer metastasized to lung Metastasis to brain with Vasogenic Edema Pericardial effusion Hypertension Discharge Data Allergies Allergy/AdvReac Type Severity Reaction Status Date / Time diphenhydramine Allergy Mild RASH ALL Verified 10/17/18 13:24 ANTIHISTAMINES TYPE UNKNOWN Sulfa (Sulfonamide AdvReac Mild GI SYMPTOMS Verified 10/17/18 13:24 Antibiotics) aspirin AdvReac Unknown PT VERY Unverified 10/17/18 13:24 VAGUE WITH SYMPTOMS Consultations 05/05/20 11:48 ED Decision to Admit Stat 05/05/20 12:41 Consult Palliative Care Routine 05/05/20 14:04 Consult Case Management - Discharge Planning Routine 05/06/20 10:56 Consult Radiation Oncology Routine Ordered Studies 05/05/20 10:10 CT abd pelvis IV con only Stat CT angio head w con Stat CT angio neck with con Stat CT head/brain wo con Stat 05/06/20 14:00 MR brain wo/w con Routine [facility], [phone] CT Scan Report Patient: TADEO SANDOVAL JRAdmit Date: 05/05/20MR#: [id number]: [id number] JUANAMASSIMO RDAcct ID:[id number]: [facility]: [facility] Zip: [place] [id number]: [birth year]Location: EDSex: MRoom/Bed:Att Phy:Diagnosis: CONFUSIONPri Phy: PCP,NOService Date: 05/05/20Fam Phy:Interpreting Phy: Lino Ricci MDAdmit Phy: Ordering Phy: Todd Mckeon, DO CT SCAN OF THE ABDOMEN AND PELVIS WITH IV CONTRAST CLINICAL HISTORY: Generalized abdominal pain. Change in mental status. COMPARISON STUDY: Abdominal CT dated 07/06/2017. PET/CT dated 11/14/2019. TECHNIQUE: Following the IV administration of 120 cc of Optiray 320, CT scan of the abdomen and pelvis is performed from the lung bases to the proximal femora. Images are reviewed in the axial, sagittal, and coronal planes. IV contrast was administered without complication. A dose lowering technique was utilized adhering to the principles of ALARA. FINDINGS: Lung bases: The heart is enlarged noting a moderate pericardial effusion. The coronary arteries are densely calcified. There is trace right pleural effusion. No airspace consolidation is seen typical for pneumonia. Scattered calcified granulomas are observed. Pulmonary metastatic disease at both lung bases appears modestly increased from the 11/14/2019 examination. A 3.9 cm left lower lobe mass is seen on image #13. A 1.4 cm right lower lobe nodule is seen on image #45. There is a small hiatal hernia. Liver: The contrast-enhanced liver is normal in size, contour, and attenuation. There is mild intrahepatic biliary ductal dilatation. The hepatic veins and portal veins are patent. Gallbladder: Surgically absent noting clips in the gallbladder fossa. Dilatation of the common bile duct is similar to previous and likely related to previous cholecystectomy. Spleen: Normal in size and attenuation. Pancreas: Moderately atrophic and grossly unremarkable. Adrenal glands: Unremarkable. Kidneys: The contrast enhanced kidneys demonstrate cortical atrophy and are without hydronephrosis. The kidneys enhance symmetrically. Abdominal vasculature: The abdominal aorta is normal in course and caliber noting moderate atherosclerotic calcification. Bowel: There is postoperative change from a proctocolectomy with left lower quadrant colostomy. No bowel obstruction is identified. There is mild to moderate diverticulosis of the remaining colon without CT evidence of acute diverticulitis. There are also scattered diverticula of the small bowel. There is interloop edema and minimal wall thickening involving loops of small bowel in the left mid abdomen (image #191). Moderate constipation is observed. The appendix is surgically absent. Peritoneum: There is no intraperitoneal free air or abdominal ascites. Lymphadenopathy: None. Pelvic viscera: The prostate gland is enlarged and heterogeneous. The bladder wall is thickened and trabeculated indicating chronic outlet obstruction. Skeletal structures: The skeletal structures are osteopenic. There is moderate lumbosacral spondylosis. Postlaminectomy changes noted in the lower lumbar spine. No lytic or blastic lesions are seen. IMPRESSION: 1. There is interloop edema involving loops of small bowel in the left midabdomen with minimal small bowel wall thickening. Correlate clinically for evidence of a nonspecific enteritis. 2. Cardiomegaly and moderate pericardial effusion. This has increased in size from 11/14/2019. 3. Pulmonary metastatic disease appears modestly progressive as compared to 11/14/2019. 4. Trace right pleural effusion. 5. Moderate constipation. 6. Postoperative change from proctocolectomy with left lower quadrant colostomy. No bowel obstruction is seen. 7. Additional findings as above. ACT 112: Negative or not required by law. Electronically signed by: Lino Ricci M.D. 05/05/2020 11:03 AM Dictated: 05/05/20 1051Transcribed: 05/05/20 1100 MRI OF THE BRAIN COMBO CLINICAL HISTORY: Colorectal carcinoma. COMPARISON STUDY: CT of the brain dated 05/05/2020. TECHNIQUE: MRI of the brain was performed utilizing various T1 and T2-weighted sequences in the axial, sagittal, and coronal planes. Contrast-enhanced sequences were acquired following the administration of 8.5 cc of Gadavist. The examination is compromised by motion artifact. FINDINGS: Brain parenchyma: There is evidence of extensive/multifocal intracranial met astatic disease. There are least 5 supratentorial lesions seen. A 2.4 cm lesion is seen in the left frontal lobe is seen on image #70, and a 1.3 cm lesion in the right frontal lobe as seen on image #62. A solid and cystic lesion in the left occipital lobe on image #72 with a mural nodule measures 3.4 cm. A high right parietal lobe lesion on image #107 measures 1.5 cm. These lesions demonstrate significant surrounding edema with effacement of the overlying cortical sulci. There is no significant midline shift. The frontal horn of the left lateral ventricle is effaced. There are least 9 cerebellar lesions identified with significant surrounding edema. The largest lesion is seen in the left lobe on image #37 of 124 and measures 1.6 cm. There is age-related involutional change noting mild subcortical and periventricular microangiopathic disease. There is no restricted diffusion typical for acute ischemia. No extra- axial fluid collection is seen. A prominent perivascular space is noted in the left basal ganglia. The cerebellar tonsils are normal in configuration. Ventricles, sulci, and cisterns: Prominent secondary to involutional change. See above. Pituitary and sella: Unremarkable. Intracranial vasculature: Normal flow voids are maintained at the skull base. Orbits: The bony orbits are grossly intact. Orbital contents are normal in appearance noting a right ocular lens implant. Sinuses and mastoids: Clear. Calvarium: No destructive bony lesion is seen. Cervical cord: Partially visualized cervical spinal cord is normal in morphology and signal intensity. IMPRESSION: 1. There is evidence of extensive/multifocal intracranial metastatic disease as above. 2. These lesions demonstrate significant surrounding edema with effacement of the overlying cortical sulci. There is no significant midline shift. 3. There is no hemorrhage or evidence of acute ischemia. Electronically signed by: Lino Ricci M.D. 05/06/2020 4:11 PM Dictated: 05/06/20 1602Transcribed: 05/06/20 1602 Hospital Course (1) Rectal cancer metastasized to lung: (2) Confusion: (3) Metastasis to brain: (4) Pericardial effusion: (5) HTN (hypertension): The patient is a 74-year-old man who presented with weakness and confusion to the ER. This is been getting worse for a week. A CT of his head with angiograms of the head and neck revealed metastatic disease in the brain with small bleeds. This was discussed with Dr. Rodriguez from hematology and the patient was admitted to the hospitalist service here and started on steroids with radiation offered via radiation oncology consultation. He did have some gastrointestinal symptoms prior to arrival and underwent a CT of the abdomen and pelvis. There was evidence of a small nonspecific changes consistent with enteritis present with moderate stool retention in the setting of a known history of proctocolectomy with left lower quadrant colostomy. The patient did have pulmonary metastasis that were seen as well as a moderate sized pericardial effusion. An echocardiogram revealed normal LV chamber size with moderate concentric LVH, EF 55 to 60% with no segmental left ventricular wall motion abnormalities noted, grade 1 diastolic dysfunction with no significant valvular pathology. A mild loculated anterior pericardial effusion without hemodynamic compromise was seen. Dr. Loretta Rodriguez saw him from radiation oncology and recommended decreasing the dexamethasone dose to 4 mg twice daily to help with agitation. An MRI of the brain was performed to help with set up for radiation treatment this revealed evidence of extensive/multifocal intracranial metastatic disease with surrounding edema and effacement of the overlying cortical sulci with no midline shift. There was no evidence of hemorrhage or evidence of acute ischemia. Palliative care was consulted after the patient and decided against further therapies with radiation at this time. Dr. Preethi Rhodes saw the patient from the palliative care team and clarified goals of care. Hospice was set up for the patient at time of discharge. At time of discharge he was oriented with intermittent confusion, ambulating with minimal assistance and tolerating p.o. He was slightly hypertensive secondary to the steroids and this was discussed with his via phone on day of discharge. We also discussed his medications and why he was taking which medication and what to avoid. Side effects of steroids were reviewed. He was sent home in guarded condition with his known stage IV metastatic cancer and close primary care follow-up was recommended to recheck his blood pressure and ensure he is doing well on the steroids. Additionally, follow-up with hematology as recommended to discuss the plan regarding his oral chemotherapy. Total Time Total Time Spent Total Time Spent (In Minutes): 60 Total Time Includes: Examination of the Patient, Discharge Planning, Medication Reconciliation and Communication With Other Providers Discharge Plan Discharge Items Patient Disposition: Hospice - Home Reason For Visit: METASTATIC RECTAL CA TO BRAIN Discharge Diagnosis: Rectal cancer metastasized to lung Metastasis to brain with Vasogenic Edema Pericardial effusion Hypertension Activity: Resume your previous activity Non-emergency contact: Primary Care Provider Call non-emergency contact if: you have any medication questions, your symptoms worsen, your pain is not controlled, your pain is worsening, your pain is unusual for you, your pain is concerning for you and you have a fever Follow-up/Referrals: Uriel Hewitt MD [Primary Care Provider] - Diet: Regular Addtl Attending Provider Instructions: Please take all medications as instructed on discharge list below. Please note the steroids are being prescribed for help with reducing brain swel ling surrounding the metastases. If you experience agressiveness, irritability, insomnia, or extreme high blood pressure (and there are many other side effects with this medication) and you wish to stop the steroids, it is recommended this be discussed with a medical professional and tapered off as opposed to being stopped all at once. It is recommended that you follow-up with your primary care physician in 1-2 weeks to ensure you are still doing well after discharge home. This will be important to monitor your blood pressure which was high during the hospital stay, and to make sure that you are tolerating the steroids without issue. Please followup with your Oncology provider to discuss the treatment plan regarding continuation of any chemotherapy. It was a pleasure taking care of you! Please call if you have any questions or problems. You can reach a [facility] hospitalist on duty at [facility] 24 hours a day by calling [phone]. Take care of yourself. Nandini Ramsey, [place] Hospitalist Pending Studies at Discharge: No Stand-Alone Forms: My [facility] Medications and DC Order Prescriptions: New dexamethasone 4 mg Tablet 4 mg PO BID Qty: 60 RF: 0 Continued oxycodone 10 mg tablet 10 mg PO TID PRN (Reason: Pain) RF: 0 alprazolam 1 mg tablet 1 mg PO BID PRN (Reason: Anxiety) RF: 0 tamsulosin 0.4 mg capsule 0.4 mg PO DAILY RF: 0 triamterene-hydrochlorothiazid 75-50 mg tablet 1 tab PO DAILY RF: 0 lisinopril 40 mg tablet 40 mg PO DAILY RF: 0 multivitamin capsule 1 cap PO DAILY RF: 0 capecitabine 500 mg Tablet 500 mg PO BID RF: 0 Discontinued sulindac 200 mg tablet 200 mg PO BID RF: 0 Discharge Orders: Discharge Order (Routine); Ordered 05/09/20 Ordered By: Nandini Ramsey Admission Data Admit Date/Time: 05/05/20 12:41 Attending Provider: Nandini Ramsey Admit Provider: Emma Palomino Primary Care Provider: Uriel Hewitt Other Providers: Emma Palomino ; Preethi Rhodes ; Kayla Rodriguez ; [facility] Other Interventions: Discharge Summary Assessment (RN) Last Done: 05/09/20 13:06
[2020-05-09] MEDS: TAMSULOSIN HCL 0.4 MG CAP PO SCH (08:26)
[2020-05-09] MEDS: lisinopril 40 MG TAB PO SCH (08:26)
[2020-05-09] MEDS: MAGNESIUM OXIDE 400 MG TAB PO SCH (08:26)
[2020-05-09] MEDS: dexAMETHasone 4 MG TAB PO SCH (08:26)
[2020-05-09] MEDS: TRIAMTERENE/HCTZ 37.5/25MG TAB PO SCH (08:27)
[2020-05-09] MEDS: MULTIVITAMIN TAB PO SCH (08:27)
== END 2020-05-09 14:24 | disposition hospice, home (50) | DRG 54 ==
LOC: ED 10:02 → SUATTDRO 12:41 → 3W 12:41